=== PATIENT | male | born 1940 | race Caucasian/White ===

== ENCOUNTER 2018-08-19 13:01 | Emergency (ER) | payer OTHER ==
[2018-08-19] MEDS ORDERED: TETANUS & DIPHTHERIA TOX,ADULT 0.5 ML VIAL ONE (13:17)
--- NOTE | 2018-08-19 13:59 | RAD REPORT ---
EXAM DESCRIPTION: CT - Head C Spine Mpr Wo Con - 08/19/2018 1:33 pm CLINICAL HISTORY: Head and neck injury status post fall. Head and neck pain COMPARISON: 2016 TECHNIQUE: Computed axial tomography of the head and cervical spine was obtained. Sagittal and coronal reconstruction was performed. All CT scans are performed using dose optimization technique as appropriate and may include automated exposure control or mA/KV adjustment according to patient size. FINDINGS: An intracranial bleed is not seen. The ventricles are normal in caliber. An extra-axial fl uid collection is not noted. The frontal sinus and left maxillary sinuses are completely opacified. R ight maxillary sinus is almost completely opacified. Moderate opacification ethmoid sinus. A cervical fracture is not visualized. No dislocation is noted. A small central disc herniation C3-4 is present IMPRESSION: No acute intracranial abnormality is seen. A cervical fracture is not visualized. If the patient continues to have symptoms to suggest intracra nial /spinal cord pathology then MRI would be recommended Acute and chronic sinusitis
--- NOTE | 2018-08-19 15:12 | EDPHYS ---
Physician Documentation [facility] Name: Rocky Don Age: 77 yrs Sex: Male : 1940 Arrival Date: 08/19/2018 Time: 13:02 Bed 23 Private MD: ED Physician Ty Ham HPI: 08/19 13:06 This 77 yrs old Male presents to ER via Ambulatory with complaints of Head ps1 Injury With LOC-Adult. 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 Fell and hit head. Has ps1 laceration to left occiput. Negative LOC. Small laceration which is hemostatically controlled [employer]OL SYSTEM[employer] ENG. Pain mild to moderate. [facility] patient. Not on blood thinners. . Historical: - PSHx: 13:21 right ankle surg; tl3 - Immunization history:: Adult Immunizations unknown. - Social history:: Smoking status: unknown. - Ebola Screening: : No symptoms or risks identified at this time. ROS: 13:06 Constitutional: Negative for fever, chills, and weight loss, Eyes: Negative for injury, ps1 pain, redness, and discharge, Cardiovascular: Negative for chest pain, palpitations, and edema, Respiratory: Negative for shortness of breath, cough, wheezing, and pleuritic chest pain, Abdomen/GI: Negative for abdominal pain, nausea, vomiting, diarrhea, and constipation, MS/Extremity: Negative for injury and deformity, Neuro: Negative for headache, weakness, numbness, tingling, and seizure, Psych: Negative for depression, anxiety, suicide ideation, homicidal ideation, and hallucinations. 13:06 Skin: Positive for laceration(s), of the left base of the skull. Exam: 13:06 Constitutional: This is a well developed, well nourished patient who is awake, alert, ps1 and in no acute distress. Eyes: Pupils equal round and reactive to light, extra-ocular motions intact. Lids and lashes normal. Conjunctiva and sclera are non-icteric and not injected. Chest/axilla: Normal chest wall appearance and motion. Nontender with no deformity. No lesions are appreciated. Cardiovascular: Regular rate and rhythm. No gallops, murmurs, or rubs. Normal PMI, no JVD. No pulse deficits. Respiratory: Lungs have equal breath sounds bilaterally, clear to auscultation and percussion. No rales, rhonchi or wheezes noted. No increased work of breathing, no retractions or nasal flaring. Abdomen/GI: Soft, non-tender, with normal bowel sounds. No distension or tympany. No guarding or rebound. No evidence of tenderness throughout. Back: No spinal tenderness. No costovertebral tenderness. Full range of motion. Skin: Warm, dry with normal turgor. Normal color with no rashes, no lesions, and no evidence of cellulitis. MS/ Extremity: Pulses equal, no cyanosis. Neurovascular intact. Full, normal range of motion. Neuro: Awake and alert, GCS 15, oriented to person, place, time, and situation. Cranial nerves II-XII grossly intact. Sensory grossly intact. Psych: Awake, alert, with orientation to person, place and time. Behavior, mood, and affect are within normal limits. 13:06 Head/face: Noted is a laceration(s), that is linear, 2 cm(s), of the left base of the skull. Vital Signs: 13:04 BP 168 / 78; Pulse 77; Resp 16; Temp 98; Pulse Ox 100% on R/A; Pain 1/10; hb 15:01 BP 148 / 90; Pulse 78; Resp 18; Pulse Ox 100% on R/A; tl3 Trauma Score (Adult): 13:04 Eye Response: spontaneous(1); Verbal Response: oriented(1); Motor Response: obeys hb commands(2); Systolic BP: > 89 mm Hg(4); Respiratory Rate: 10 to 29 per min(4); [place] Score: 15; Trauma Score: 12 Laceration: 15:13 Wound Repair of 2cm ( 0.8in ) subcutaneous laceration to scalp and left base of the ps1 skull. Distal neuro/vascular/tendon intact. Wound prep: Simple cleansing with betadine. Skin closed using Dermabond. Patient tolerated well. MDM: 13:44 Patient medically screened. ps1 15:13 Data reviewed: vital signs, nurses notes, radiologic studies, and as a result, I will ps1 discharge patient. 08/19 13:11 Order name: CT Head C Spine; Complete Time: 14:10 ps1 Administered Medications: 13:17 Drug: Tetanus-Diphtheria Toxoid Adult 0.5 ml {Label Rewinder: [employer] ([employer]). Exp: tl3 05/17/2020. Lot #: [id number]. } Route: IM; Site: right deltoid; 15:36 Follow up: Response: No adverse reaction tl3 Disposition: 08/19/18 15:12 Discharged to Home. Impression: Laceration without foreign body of scalp, Fall. - Condition is Stable. - Discharge Instructions: Laceration Care, Adult. - Medication Reconciliation Form, Thank You Letter, Antibiotic Education, Prescription Opioid Use form. - Follow up: Emergency Department; When: As needed; Reason: Worsening of condition. Follow up: Private Physician; When: As needed; Reason: Recheck today's complaints, Continuance of care, Re-evaluation by your physician. - Problem is new. - Symptoms have improved. Signatures: Dispatcher [employer] EDMS Hillary Mayers RN RN Ty Ham MD MD ps1 Lillie Hull RN RN tl3 Corrections: (The following items were deleted from the chart) 15:38 15:12 08/19/2018 15:12 Discharged to Home. Impression: Laceration without foreign body tl3 of scalp; Fall. Condition is Stable. Forms are Medication Reconciliation Form, Thank You Letter, Antibiotic Education, Prescription Opioid Use. Follow up: Emergency Department; When: As needed; Reason: Worsening of condition. Follow up: Private Physician; When: As needed; Reason: Recheck today's complaints, Continuance of care, Re-evaluation by your physician. Problem is new. Symptoms have improved. ps1
--- NOTE | 2018-08-19 15:12 | ER ---
Nurse's Notes [facility] Name: Rocky Don Age: 77 yrs Sex: Male : 1940 Arrival Date: 08/19/2018 Time: 13:02 Bed 23 Private MD: Diagnosis: Laceration without foreign body of scalp;Fall Presentation: 08/19 13:02 Presenting complaint: Laceration to back of head after tripping over extension cord and hb landing on car batter on the floor. Denies LOC. 1cm laceration noted to back of head, not bleeding. Care prior to arrival: None. 13:02 Acuity: TABATHA 3 hb 13:02 Method Of Arrival: Ambulatory hb 13:05 Transition of care: patient was not received from another setting of care. Onset of hb symptoms was August 19, 2018. Risk Assessment: Do you want to hurt yourself or someone else? Patient reports no desire to harm self or others. Initial Sepsis Screen: Does the patient meet any 2 criteria? No. Patient's initial sepsis screen is negative. Does the patient have a suspected source of infection? No. Patient's initial sepsis screen is negative. Trauma Activation: Not Applicable Physician: ED Physician; Name: ; Notified At: ; Arrived At: Physician: General Surgeon; Name: ; Notified At: ; Arrived At: Physician: Radiology; Name: ; Notified At: ; Arrived At: Physician: Respiratory; Name: ; Notified At: ; Arrived At: Physician: Lab; Name: ; Notified At: ; Arrived At: Historical: - PSHx: 13:21 right ankle surg; tl3 - Immunization history:: Adult Immunizations unknown. - Social history:: Smoking status: unknown. - Ebola Screening: : No symptoms or risks identified at this time. Screenin:21 Abuse screen: Denies threats or abuse. Nutritional screening: No deficits noted. tl3 Tuberculosis screening: No symptoms or risk factors identified. Fall Risk Fall in past 12 months (25 points). Primary Survey: 13:03 NO uncontrolled hemorrhage observed. A: The patient is alert. Airway: patent, No hb supplemental oxygen in use on arrival. Breathing/Chest: Respiratory pattern: regular, Respiratory effort: spontaneous, unlabored, Chest inspection:. Circulation: Skin color: pink, Skin temperature: warm, dry. Disability Alert. Exposure/Environment: There is no evidence of uncontrolled external bleeding. Obvious injury(ies) are noted at this time: 1cm laceration to back of head. Assessment: 13:18 General: Appears in no apparent distress. comfortable, slender, well groomed, well tl3 developed, well nourished, Behavior is calm, cooperative, appropriate for age. Pain: Complains of pain in scalp and left base of the skull. Neuro: Level of Consciousness is awake, alert, obeys commands, Oriented to person, place, time, situation, Appropriate for age. Cardiovascular: Patient's skin is warm and dry. Respiratory: Airway is patent. Derm: Wound noted scalp and left base of the skull Wound is pt tripped off over an extension cord at [employer] and hit his head on the corner of a car battery 1/4 in puncture wound to scalp, cleaned with NS. Musculoskeletal: Range of motion: intact in all extremities. 15:01 Reassessment: Patient appears in no apparent distress at this time. No changes from tl3 previously documented assessment. Patient and/or family updated on plan of care and expected duration. Pain level reassessed. Patient is alert, oriented x 3, equal unlabored respirations, skin warm/dry/pink. Dr Ham at bedside for wound clousure. Vital Signs: 13:04 BP 168 / 78; Pulse 77; Resp 16; Temp 98; Pulse Ox 100% on R/A; Pain 1/10; hb 15:01 BP 148 / 90; Pulse 78; Resp 18; Pulse Ox 100% on R/A; tl3 Trauma Score (Adult): 13:04 Eye Response: spontaneous(1); Verbal Response: oriented(1); Motor Response: obeys hb commands(2); Systolic BP: > 89 mm Hg(4); Respiratory Rate: 10 to 29 per min(4); [place] Score: 15; Trauma Score: 12 ED Course: 13:02 Patient arrived in ED. hb 13:03 Ty Ham MD is Attending Physician. ps1 13:03 Triage completed. hb 13:16 Lillie Hull, RN is Primary Nurse. tl3 13:21 Patient has correct armband on for positive identification. Bed in low position. Call tl3 light in reach. Adult w/ patient. 13:21 No provider procedures requiring assistance completed. Patient did not have IV access tl3 during this emergency room visit. 13:34 CT Head C Spine In Process Unspecified. EDMS 13:34 CT completed. Patient tolerated procedure well. Patient moved back from CT. bq 15:37 Arm band placed on left wrist. tl3 Administered Medications: 13:17 Drug: Tetanus-Diphtheria Toxoid Adult 0.5 ml {Rehab Aid: [employer] ([employer]). Exp: tl3 05/17/2020. Lot #: [id number]. } Route: IM; Site: right deltoid; 15:36 Follow up: Response: No adverse reaction tl3 Outcome: 15:01 Discharged to home ambulatory. tl3 15:01 Condition: stable 15:01 Discharge instructions given to patient, family, Instructed on discharge instructions, follow up and referral plans. Demonstrated understanding of instructions, follow-up care. 15:12 Discharge ordered by . ps1 15:38 Patient left the ED. tl3 Signatures: Dispatcher [employer] EDMS Mari Wood bq Hillary Mayers RN RN hb Singer, Phillip, MD MD ps1 Lillie Hull RN RN tl3
[2018-08-19] MEDS ORDERED: DERMABOND SKIN ADHESIVE TOP ONE (15:13)
== END 2018-08-19 15:38 | disposition home or self-care (01) ==
LOC: ER 13:01
PROC: 0HQ0XZZ Repair Scalp Skin, External Approach (ICD-10-PCS; principal; 2018-08-19)
DX: S01.01XA Laceration without foreign body of scalp, initial encounter (principal); W01.198A Fall on same level from slipping, tripping and stumbling with subsequent striking against other object, initial encounter; Z23 Encounter for immunization
CPT/HCPCS: 70450; 72125; 90714; 99284

== ENCOUNTER 2021-09-10 11:41 | Emergency (ER) | payer OTHER ==
--- OUTSIDE RECORDS SUMMARY | 2021-09-10 11:44 | XMS REPORT | Continuity of Care Document ---
:1940 Author Organization [facility] t Address [address] [place] [address] [address] [place] [address] Care Team Providers Name Role Phone Gregory-Mbayo_A_AH Attending Clinician Unavailable Gregory-Mbayo_A_AH Admitting Clinician Unavailable Payers Payer Name Policy Type Policy Number Effective Date Expiration Date S aline [facility] [place] - [id number] 2019 [employer] 00:00:00 (MEDICARE REPLACEMENT/ADVANT AGE - HMO) Problems This patient has no known problems. Allergies, Adverse Reactions, Alerts This patient has no known allergies or adverse reactions. Medications This patient has no known medications. Procedures This patient has no known procedures. Encounters Start End Encounter Admission Attending Care Care Encounter Source Date/Time Date/Time Type Type Clinicians Facility Department ID 2019-10-25 2019-10-25 Outpatient Gregory-Mbayo VFP VFP [id number] [facility] 05:58:00 05:58:00 _A_AH [id number] Family Practic e 2019-10-25 2019-10-25 Outpatient Gregory-Mbayo VFP VFP [id number] [facility] 05:58:00 05:58:00 _A_AH [id number] Family Practic e 2019-10-25 2019-10-25 Outpatient Gregory-Mbayo VFP VFP [id number] [facility] 05:58:00 05:58:00 _A_AH [id number] Family Practic e 2019-10-25 2019-10-25 Outpatient Gregory-Mbayo VFP VFP [id number] [facility] 05:58:00 05:58:00 _A_AH [id number] Family Practic e 2019-10-25 2019-10-25 Outpatient Gregory-Mbayo VFP VFP [id number] [facility] 05:58:00 05:58:00 _A_AH [id number] Family Practic e Results This patient has no known results.
[2021-09-10] MEDS ORDERED: METHYLPREDNISOLONE 125 MG INJ ONE (13:15)
[2021-09-10] MEDS ORDERED: NA CHLORIDE 0.9% 1,000 ML ONE (13:15)
[2021-09-10 13:22] LABS: Absolute Lymphocytes (CBC) 0.6 K/uL (0.7-4.9); Hematocrit 35.6 % (39.6-49.0); Lymphocytes % 11.3 % (15.3-44.8); MPV 8.3 fL (7.6-11.3); RBC Red Blood Cell Count 3.75 M/uL (4.33-5.43)
[2021-09-10 13:33] LABS: BUN Blood Urea Nitrogen 24 mg/dL (7-18); Bicarbonate 30 mmol/L (21-32); Glucose Level 95 mg/dL (74-106); Potassium 4.2 mmol/L (3.5-5.1); Sodium Level 139 mmol/L (136-145)
[2021-09-10 13:33] LABS: Urine Blood Trace-lysed (Negative); Urine Glucose Negative (Negative); Urine Protein Negative (Negative); Urine Specific Gravity 1.025 (1.005-1.030); Urine pH 6.5 (5.0-7.0)
[2021-09-10 13:56] LABS: Urine Bacteria <20 /HPF (NONE SEEN); Urine Mucus 1+ /HPF (NONE SEEN)
--- NOTE | 2021-09-10 13:57 | RAD REPORT ---
EXAM DESCRIPTION: RAD - Chest Single View - 09/10/2021 1:48 pm CLINICAL HISTORY: CONGESTION COMPARISON: No comparisons FINDINGS: Lines: None. Lungs: No evidence of edema or pneumonia. Pleural: No significant pleural effusions or pneumothorax. Cardiac: The heart size is within normal limits. Bones: No acute fractures. Other: IMPRESSION: No acute cardiopulmonary disease.
--- NOTE | 2021-09-10 14:14 | RAD REPORT ---
EXAM DESCRIPTION: CT - Head Brain Wo Cont - 09/10/2021 2:03 pm CLINICAL HISTORY: CONFUSED COMPARISON: No comparisons TECHNIQUE: All CT scans are performed using dose optimization technique as appropriate and may inclu de automated exposure control or mA/KV adjustment according to patient size. FINDINGS: No intracranial hemorrhage, hydrocephalus or extra-axial fluid collection.No areas of brai n edema or evidence of midline shift. Cerebral atrophy. Chronic small vessel ischemic type. Chronic mucoperiosteal thickening within the maxillary and frontal sinuses. The calvarium is intact. IMPRESSION: No acute intracranial abnormality. Chronic small vessel ischemic changes and age advanc ed cerebral atrophy. Chronic sinusitis.
--- NOTE | 2021-09-10 14:38 | ER ---
Nurse's Notes [facility] Name: Rocky Don Age: 80 yrs Sex: Male : 1940 Arrival Date: 09/10/2021 Time: 11:48 Bed 28 Private MD: Guilherme Spencer R Diagnosis: Coronavirus infection, unspecified Presentation: 09/10 12:23 Chief complaint: Patient's son or daughter states: COVID+ as of yesterday, was having jh5 spells of disorientation where he's unable to complete basic tasks like getting dressed, states it's getting better now but after testing positive for COVID he is concerned. Pt is able to answer all questions appropriately at this time, denies pain at this time. Coronavirus screen: Vaccine status: Patient reports receiving the 2nd dose of the covid vaccine. Client denies travel out of the [place] in the last 14 days. Ebola Screen: Patient negative for fever greater than or equal to 101.5 degrees Fahrenheit, and additional compatible Ebola Virus Disease symptoms Patient denies exposure to infectious person. Patient denies travel to an Ebola-affected area in the 21 days before illness onset. Initial Sepsis Screen: Does the patient meet any 2 criteria? No. Patient's initial sepsis screen is negative. Does the patient have a suspected source of infection? No. Patient's initial sepsis screen is negative. Risk Assessment: Do you want to hurt yourself or someone else? Patient reports no desire to harm self or others. Onset of symptoms was September 04, 2021. 12:23 Method Of Arrival: Ambulatory [facility] 12:23 Acuity: TABATHA 3 jh5 Triage Assessment: 12:29 General: Appears in no apparent distress. slender, well groomed, well developed, well jh5 nourished, Behavior is calm, cooperative, appropriate for age. Pain: Denies pain. Neuro: Level of Consciousness is awake, alert, obeys commands, Oriented to person, place, time, situation, Night Guard are equal bilaterally Moves all extremities. Speech is normal. Historical: - Allergies: 12:29 No Known Allergies; jh5 - PMHx: 12:29 Parkinson's disease; 5 - Immunization history:: Adult Immunizations up to date. - Social history:: Smoking status: Patient denies any tobacco usage or history of. Patient/guardian denies using alcohol, street drugs, The patient lives with family. - Family history:: not pertinent. Screenin:44 Abuse screen: Denies threats or abuse. Denies injuries from another. Nutritional ab2 screening: No deficits noted. Tuberculosis screening: No symptoms or risk factors identified. Fall Risk None identified. Assessment: 12:43 General: Appears in no apparent distress. comfortable, Behavior is calm, cooperative, ab2 appropriate for age. Pain: Denies pain. Neuro: No deficits noted. Level of Consciousness is awake, alert, obeys commands, Oriented to person, place, time, situation, Appropriate for age Night Guard are equal bilaterally Moves all extremities. Gait is steady, Speech is normal. Cardiovascular: No deficits noted. Denies chest pain, shortness of breath, Heart tones S1 S2 present Patient's skin is warm and dry. Respiratory: Reports cough that is Airway is patent Breath sounds are diminished bilaterally. GI: No deficits noted. No signs and/or symptoms were reported involving the gastrointestinal system. Abdomen is flat, non-distended, Bowel sounds present X 4 quads. : No deficits noted. No signs and/or symptoms were reported regarding the genitourinary system. EENT: No deficits noted. No signs and/or symptoms were reported regarding the EENT system. Derm: No deficits noted. No signs and/or symptoms reported regarding the dermatologic system. Musculoskeletal: No deficits noted. No signs and/or symptoms reported regarding the musculoskeletal system. Vital Signs: 12:23 BP 131 / 62; Pulse 59; Resp 18; Temp 98.0; Pulse Ox 99% ; Weight 66.68 kg; Height 5 ft. [facility] 8 in. (172.72 cm); Pain 0/10; 12:44 BP 129 / 59; Pulse 53; Resp 16; Pulse Ox 99% on R/A; Pain 0/10; ab2 14:24 BP 141 / 61; Pulse 60; Resp 16; Pulse Ox 98% on R/A; Pain 0/10; ab2 12:23 Body Mass Index 22.35 (66.68 kg, 172.72 cm) [facility] ED Course: 11:48 Patient arrived in ED. am2 11:49 Guilherme Spencer MD is Private Physician. am2 12:29 Triage completed. [facility] 12:29 Arm band placed on right wrist. [facility] 12:44 Kalyan Allen MD is Attending Physician. ma2 12:44 Patient has correct armband on for positive identification. Call light in reach. Side ab2 rails up X2. Adult w/ patient. 12:44 No provider procedures requiring assistance completed. ab2 12:52 Ramsey Vincent, RN is Primary Nurse. bp 13:12 Amylase Sent. ab2 13:12 Basic Metabolic Panel Sent. ab2 13:12 Amylase, Serum Sent. ab2 13:12 Basic Metabolic Panel Sent. ab2 13:12 CBC with Diff Sent. ab2 13:12 CPK Sent. ab2 13:12 Ckmb Sent. ab2 13:12 LFT's Sent. ab2 13:12 Lactate Sent. ab2 13:12 Lipase Sent. ab2 13:12 Procalcitonin Sent. ab2 13:12 Protime (+inr) Sent. ab2 13:12 Ptt, Activated Sent. ab2 13:12 Troponin HS Sent. ab2 13:36 Chest Single View XRAY Sent. ab2 13:48 Chest Single View XRAY In Process Unspecified. EDMS 14:03 CT Head Brain wo Cont In Process Unspecified. EDMS 14:50 IV discontinued, intact, bleeding controlled, No redness/swelling at site. Pressure ab2 dressing applied. Administered Medications: 13:16 Drug: NS 0.9% 1000 ml Route: IV; Rate: 1 bolus; Site: left antecubital; ab2 13:16 Drug: SOLU-Medrol (methylPrednisoLONE) 125 mg Route: IVP; Site: left antecubital; ab2 Outcome: 14:37 Discharge ordered by . ma2 14:49 Discharged to home ambulatory, with family. ab2 14:49 Condition: good 14:49 Discharge instructions given to patient, family, Instructed on discharge instructions, follow up and referral plans. the need for admit, Demonstrated understanding of instructions, follow-up care, medications, Prescriptions given X 3. 14:50 Patient left the ED. ab2 Signatures: Dispatcher [employer] EDMS Faviola Conn am2 Ramsey Vincent, RN RN Kalyan Allen MD MD sd2 Cely Verma RN RN [facility] Manny Price ab2 Corrections: (The following items were deleted from the chart) 12:31 12:23 Chief complaint: Patient's son or daughter states: COVID+ as of yesterday, was jh5 having spells of disorientation where he's unable to complete basic tasks like getting dressed, states he is better now though. jh5 13:13 13:12 UA MICROSCOPIC+U.LAB.BRZ drawn and sent. ab2 EDMS
--- NOTE | 2021-09-10 14:38 | EDPHYS ---
Physician Documentation [facility] Name: Rocky Don Age: 80 yrs Sex: Male : 1940 Arrival Date: 09/10/2021 Time: 11:48 Bed 28 Private MD: Guilherme Spencer R ED Physician Kalyan Allen HPI: 09/10 12:46 This 80 yrs old Male presents to ER via Ambulatory with complaints of covid+, worsening ma2 of symptoms, Altered Mental Status. 12:46 Onset: The symptoms/episode began/occurred gradually, 2 day(s) ago. Associated signs ma2 and symptoms: Pertinent negatives: blurred vision, combativeness, diaphoresis, diarrhea. The patient has not experienced similar symptoms in the past. Historical: - Allergies: 12:29 No Known Allergies; jh5 - PMHx: 12:29 Parkinson's disease; jh5 - Immunization history:: Adult Immunizations up to date. - Social history:: Smoking status: Patient denies any tobacco usage or history of. Patient/guardian denies using alcohol, street drugs, The patient lives with family. - Family history:: not pertinent. ROS: 12:46 Constitutional: Negative for fever, chills, and weight loss. ma2 12:46 All other systems are negative. 12:46 All other systems are negative. Exam: 12:46 Constitutional: This is a well developed, well nourished patient who is awake, alert, ma2 and in no acute distress. Head/Face: Normocephalic, atraumatic. Eyes: Pupils equal round and reactive to light, extra-ocular motions intact. Lids and lashes normal. Conjunctiva and sclera are non-icteric and not injected. Cornea within normal limits. Periorbital areas with no swelling, redness, or edema. ENT: Nares patent. No nasal discharge, no septal abnormalities noted. Tympanic membranes are normal and external auditory canals are clear. Oropharynx with no redness, swelling, or masses, exudates, or evidence of obstruction, uvula midline. Mucous membranes moist. Neck: Trachea midline, no thyromegaly or masses palpated, and no cervical lymphadenopathy. Supple, full range of motion without nuchal rigidity, or vertebral point tenderness. No Meningismus. Chest/axilla: Normal chest wall appearance and motion. Nontender with no deformity. No lesions are appreciated. Cardiovascular: Regular rate and rhythm with a normal S1 and S2. No gallops, murmurs, or rubs. Normal PMI, no JVD. No pulse deficits. Respiratory: Lungs have equal breath sounds bilaterally, clear to auscultation and percussion. No rales, rhonchi or wheezes noted. No increased work of breathing, no retractions or nasal flaring. Abdomen/GI: Soft, non-tender, with normal bowel sounds. No distension or tympany. No guarding or rebound. No evidence of tenderness throughout. Skin: Warm, dry with normal turgor. Normal color with no rashes, no lesions, and no evidence of cellulitis. MS/ Extremity: Pulses equal, no cyanosis. Neurovascular intact. Full, normal range of motion. Neuro: Awake and alert, GCS 15, oriented to person, place, time, and situation. Cranial nerves II-XII grossly intact. Motor strength 5/5 in all extremities. Sensory grossly intact. Cerebellar exam normal. Normal gait. Vital Signs: 12:23 BP 131 / 62; Pulse 59; Resp 18; Temp 98.0; Pulse Ox 99% ; Weight 66.68 kg; Height 5 ft. jh5 8 in. (172.72 cm); Pain 0/10; 12:44 BP 129 / 59; Pulse 53; Resp 16; Pulse Ox 99% on R/A; Pain 0/10; ab2 14:24 BP 141 / 61; Pulse 60; Resp 16; Pulse Ox 98% on R/A; Pain 0/10; ab2 12:23 Body Mass Index 22.35 (66.68 kg, 172.72 cm) [facility] MDM: 12:46 Patient medically screened. ma2 14:35 Differential Diagnosis: electrolyte abnormality, alcohol intoxication, hypoglycemia, ma2 UTI, volume depletion. Data reviewed: vital signs, nurses notes. Counseling: I had a detailed discussion with the patient and/or guardian regarding: the historical points, exam findings, and any diagnostic results supporting the discharge/admit diagnosis, the presence of at least one elevated blood pressure reading (>120/80) during this emergency department visit, lab results, radiology results, the need for outpatient follow up. Response to treatment: the patient's symptoms have markedly improved after treatment. ED course: Patient has COVID, mild dehydration, he is ANO x4 vital signs within normal limits to stay in the ER. Discharged home. 09/10 12:46 Order name: Amylase, Serum 09/10 12:46 Order name: Basic Metabolic Panel [facility] 09/10 12:46 Order name: Blood Culture Adult (2) [facility] 09/10 12:46 Order name: CBC with Diff; Complete Time: 13:40 ok09/10 12:46 Order name: CPK [facility] 09/10 12:46 Order name: Ckmb ok09/10 12:46 Order name: LFT's [facility] 09/10 12:46 Order name: Lactate; Complete Time: 13:40 ok09/10 12:46 Order name: Lipase [facility] 09/10 12:46 Order name: Procalcitonin; Complete Time: 14:35 [facility] 09/10 12:46 Order name: Protime (+inr); Complete Time: 13:40 [facility] 09/10 12:46 Order name: Ptt, Activated; Complete Time: 13:40 ok09/10 12:46 Order name: Troponin HS ok09/10 12:46 Order name: Urine Microscopic Only; Complete Time: 14:35 ok09/10 12:46 Order name: Chest Single View XRAY; Complete Time: 14:35 ok09/10 12:46 Order name: Accucheck; Complete Time: 13:36 09/10 12:46 Order name: Cardiac monitoring; Complete Time: 13:39 ok09/10 12:46 Order name: EKG - Nurse/Tech; Complete Time: 14:41 ok09/10 12:46 Order name: IV Saline Lock - Large Bore; Complete Time: 13:12 09/10 12:46 Order name: Labs collected and sent; Complete Time: 13:12 09/10 12:46 Order name: O2 Per Protocol; Complete Time: 13:12 09/10 12:46 Order name: O2 Sat Monitoring; Complete Time: 13:12 09/10 12:46 Order name: Urine Dipstick-Ancillary (obtain specimen); Complete Time: 13:35 ok09/10 12:46 Order name: CT Head Brain wo Cont; Complete Time: 14:35 ma2 01/13 12:46 Order name: Amylase EDMS 09/10 12:46 Order name: Basic Metabolic Panel EDMS 09/10 13:33 Order name: Urine Dipstick-Ancillary; Complete Time: 13:40 EDMS Administered Medications: 13:16 Drug: NS 0.9% 1000 ml Route: IV; Rate: 1 bolus; Site: left antecubital; ab2 13:16 Drug: SOLU-Medrol (methylPrednisoLONE) 125 mg Route: IVP; Site: left antecubital; ab2 Disposition Summary: 09/10/21 14:37 Discharge Ordered Location: Home ma2 Condition: Stable ma2 Diagnosis - Coronavirus infection, unspecified ma2 Followup: ma2 - With: Private Physician - When: Tomorrow - Reason: If symptoms return, Continuance of care Discharge Instructions: - Discharge Summary Sheet ma2 - COVID-19 ma2 Forms: - Medication Reconciliation Form ma2 - Thank You Letter ma2 - Antibiotic Education ma2 - Prescription Opioid Use ma2 Prescriptions: - Tessalon Perles 100 mg Oral Capsule - take 1 capsule by ORAL route every 8 hours As needed; 15 capsule; Refills: 0, ma2 Product Selection Permitted - Diclofenac Sodium 75 mg Oral Tablet Sustained Release - take 1 tablet by ORAL route 2 times per day; 30 tablet; Refills: 0, Product ma2 Selection Permitted - Zithromax Z-Anthony 250 mg Oral Tablet - take 1 tablet by ORAL route as directed for 5 days Day 1 - take two (2) tablets ma2 one time. Day 2, 3, 4 , 5 take one (1) tablet once daily.; 6 tablet; Refills: 0, Product Selection Permitted Signatures: Dispatcher [employer] EDMS Kalyan Allen MD MD ma2 Cely Verma RN RN jh5 Manny Price ab2 Corrections: (The following items were deleted from the chart) 13: 12:46 UA MICROSCOPIC+U.LAB.BRZ ordered. [facility]SC EDMS
[2021-09-10 15:08] VITALS: TEMP 98
[2021-09-10 15:12] VITALS: BP 141/61; O2SAT 98
[2021-09-10 17:37] LABS: ALT/SGPT 20 U/L (12-78); AST/SGOT 23 U/L (15-37); Albumin 2.9 g/dL (3.4-5.0); Alkaline Phosphatase 84 U/L (45-117); Bilirubin Direct < 0.1 mg/dL (0-0.2); Bilirubin Total 0.3 mg/dL (0.2-1.0); CKMB Creatine Kinase MB 3.5 ng/mL (1.0-3.6); Creatine Phosphokinase 108 U/L (39-308); Lipase 118 U/L (73-393); Protein, Total 7.3 g/dL (6.4-8.2)
[2021-09-10 17:55] LABS: Amylase 75 U/L (25-115)
== END 2021-09-10 14:50 | disposition home or self-care (01) ==
LOC: ER 11:41
DX: U07.1 COVID-19 (principal); R41.82 Altered mental status, unspecified; E86.0 Dehydration
CPT/HCPCS: 87040; 85025; 80048; 36415; 82150; 82550; 85610; 80076; 83605; 85730; 84484; 82553; 83690; 84145; 70450; 71045; 96374; 99284; J7030; J2930; 81003; 81015

== ENCOUNTER 2022-06-03 09:45 | Inpatient (IN) | payer OTHER ==
[2022-06-03 11:27] LABS: Absolute Lymphocytes (CBC) 0.6 K/uL (0.7-4.9); Hematocrit 32.9 % (39.6-49.0); Lymphocytes % 4.6 % (15.3-44.8); MCV 95.8 fL (80-100); MPV 8.9 fL (7.6-11.3); Protime INR 1.17; RBC Red Blood Cell Count 3.43 M/uL (4.33-5.43)
--- OUTSIDE RECORDS SUMMARY | 2022-06-03 11:32 | XMS REPORT | Continuity of Care Document ---
:1940 Author Organization [facility] t Address [address] [place] [address] [address] [place] [address] Care Team Providers Name Role Phone Gregory-Mbayo_A_AH Attending Clinician Unavailable Gregory-Mbayo_A_AH Admitting Clinician Unavailable Payers Payer Name Policy Type Policy Number Effective Date Expiration Date S aline [facility] - [id number] 2019 [employer] 00:00:00 (MEDICARE REPLACEMENT/ADVANT AGE - [...] 2019-10-25 Outpatient Gregory-Mbayo VFP VFP [id number] [facility] 05:58:00 05:58:00 _A_AH [id number] Family Practic e 2019-10-25 2019-10-25 Outpatient Gregory-Mbayo VFP VFP [id number] [facility] 05:58:00 05:58:00 _A_AH [id number] Family Practic e 2019-10-25 2019-10-25 Outpatient Gregory-Mbayo VFP VFP [id number] [facility] 05:58:00 05:58:00 _A_AH [id number] Family Practic e 2019-10-25 2019-10-25 Outpatient Gregory-Mbayo VFP VFP [id number] [facility] 05:58:00 05:58:00 _A_AH [id number] Family Practic e 2019-10-25 2019-10-25 Outpatient Gregory-Mbayo VFP VFP [id number] [facility] 05:58:00 05:58:00 _A_AH [id number] Family Practic e Results This patient has no known results.
--- NOTE | 2022-06-03 11:41 | RAD REPORT ---
EXAM DESCRIPTION: Isabel Single View06/03/2022 11:27 am CLINICAL HISTORY: Cough COMPARISON: August 2021 FINDINGS: Mild chronic interstitial opacities bilaterally Mild lingular opacity Heart is normal size IMPRESSION: Mild lingular opacity may represent atelectasis or infiltrate
[2022-06-03 11:51] LABS: Albumin 3.7 g/dL (3.4-5.0); Bilirubin Direct 0.1 mg/dL (0-0.2); Bilirubin Total 0.4 mg/dL (0.2-1.0); Magnesium 2.6 mg/dL (1.8-2.4); Potassium 5.1 mmol/L (3.5-5.1); Protein, Total 7.8 g/dL (6.4-8.2); Troponin High Sensitivity 33.8 pg/mL (<58.9)
--- NOTE | 2022-06-03 11:53 | RAD REPORT ---
EXAM DESCRIPTION: CT - Head C Spine Cap Wo Con - 06/03/2022 11:27 am CLINICAL HISTORY: fall, trauma COMPARISON: No comparisons TECHNIQUE: Axial [address] head images were obtained. Axial [address] cervical spine images were obtain ed with sagittal and coronal reconstruction images reviewed. Axial 5 mm images of the chest, abdomen and pelvis were obtained. All CT scans are performed using dose optimization technique as appropriate and may include automated exposure control or mA/KV adjustment according to patient size. FINDINGS: No intracranial hemorrhage, mass or edema. No midline shift or abnormal fluid collection. Moderate atrophy and mild chronic ischemic changes are present. Ventricles are in proportion to volum e loss. Arterial calcifications are present. Mastoid air cells are clear. Chronic bilateral maxillary sinusitis changes are present with complete opacification of the right maxillary sinus. No skull fra cture. Cervical bodies are normal in height. The patient has a left convex degenerative scoliotic curvature. No subluxation abnormalities. No fracture or acute bone finding.All disc spaces show loss in height. This is most pronounced at C5-6 and C6-7. Bony foraminal encroachment present at these levels. Sever e degenerative change present around the dens anterior arch C1 level.No prevertebral soft tissue thic kening or paraspinal mass.Central canal detail is inherently limited on CT imaging. CT chest shows no pneumothorax, pulmonary contusion or pleural fluid collection. Interstitial fibroti c changes are present with minimal atelectasis. No mediastinal hematoma and the aorta and pulmonary a rteries are unremarkable. No chest will mass or abnormal axillary finding. No displaced rib fractures are present. No nondisplaced rib fractures confirmed. CT abdomen and pelvis show no injury to solid abdominal viscera. Gallbladder and biliary tree are unr emarkable. No bowel injury or significant finding. No free air, free fluid or abnormal stranding. No hernia, mass or bulky lymphadenopathy. Urinary bladder is distended extending several cm above the u mbilical level. Advanced degenerative and scoliotic changes are present in the spine. Partial compression fractures a re seen in T11 through L5 with varying severity. No pathologic component. Acute fractures are not herbie pected. There is bridging ossification in the thoracic spine. All lumbar disc levels show advanced de generative change. IMPRESSION: No hemorrhage, edema or acute CT Head finding. Cervical spine degenerative change without acute finding. No pneumothorax, displaced rib fracture or other acute traumatic chest finding. No posttraumatic injuries to the abdomen or pelvis. The patient does have a urinary bladder that is v lise distended with the dome extending above the umbilical level. Advanced degenerative changes in the thoracolumbar spine with numerous compression fractures. These a ll appear to be old.
[2022-06-03 12:32] LABS: Urine Blood 1+ (Negative); Urine Glucose Negative (Negative); Urine Protein 1+ (Negative)
[2022-06-03] MEDS ORDERED: AZITHROMYCIN 500 MG INJ IVPB ONE (12:32)
[2022-06-03] MEDS ORDERED: NA CHLORIDE 0.9% 250 ML ONE (12:32)
[2022-06-03 12:59] LABS: Urine RBC <5 /HPF (None Seen)
--- NOTE | 2022-06-03 12:59 | EDPHYS ---
Physician Documentation [facility] Name: Rocky Don Age: 81 yrs Sex: Male : 1940 Arrival Date: 06/03/2022 Time: 09:56 Bed 18 Private MD: ED Physician Linwood Al HPI: 06/03 10:15 This 81 yrs old Male presents to ER via EMS with complaints of fall, AMS. jh7 10:15 The patient presents with decreased mental status, decreased responsiveness. Onset: The jh7 symptoms/episode began/occurred this morning. Possible causes: unknown. Associated signs and symptoms:. Pt found by caregiver this morning on the floor by his bed. States that he was unable to pick him up and called 911. He reports that the patient has a hx of dementia, but that his mental status has been declining over the past week. Also reports a moist cough worsening over the past week.. Historical: - Allergies: 10:15 No Known Allergies; tp1 - Home Meds: 10:15 Oxybutynin Chloride Oral [Active]; amlodipine oral [Active]; finasteride [Active]; tp1 donepezil HCL [Active]; - PMHx: 10:15 Parkinson's disease; Dementia; BPH; Hypertensive disorder; tp1 - Immunization history:: Client reports receiving the 2nd dose of the Covid vaccine. - Social history:: Smoking status: Patient reports use of chewing tobacco. ROS: 10:15 Respiratory: Positive for cough, Negative for wheezing. jh7 10:15 Neuro: Positive for altered mental status, speech changes. 11:42 Eyes: Negative for injury, pain, redness, and discharge, ENT: Negative for injury, jh7 pain, and discharge, Neck: Negative for injury, pain, and swelling, Cardiovascular: Negative for chest pain, palpitations, and edema, Back: Negative for injury and pain, MS/Extremity: Negative for injury and deformity, Skin: Negative for injury, rash, and discoloration. 11:42 All other systems are negative. Exam: 11:42 Constitutional: The patient appears lethargic, uncomfortable, Non-verbal jh7 11:42 Respiratory: the patient does not display signs of respiratory distress, Respirations: Moist, hacking cough noted on exam, Breath sounds: decreased breath sounds, are scattered, Respiratory rate: 20 11:42 Musculoskeletal/extremity: +2 pitting edema on Bilateral lower legs. No pain with passive ROM. 11:42 Skin: injury, abrasion(s), moderate sized abrasion noted, abrasions are not bleeding and appear to be healing. 11:42 Neuro: Sensation: is normal, Pt is non-verbal, opens eyes to voice, is able to track, but does not follow commands.. 11:42 Head/Face: Normocephalic, atraumatic. Eyes: Pupils equal round and reactive to light, jh7 extra-ocular motions intact. Lids and lashes normal. Conjunctiva and sclera are non-icteric and not injected. Cornea within normal limits. Periorbital areas with no swelling, redness, or edema. ENT: Nares patent. No nasal discharge, no septal abnormalities noted. Tympanic membranes are normal and external auditory canals are clear. Oropharynx with no redness, swelling, or masses, exudates, or evidence of obstruction, uvula midline. Mucous membranes moist. Neck: Trachea midline, no thyromegaly or masses palpated, and no cervical lymphadenopathy. Supple, full range of motion without nuchal rigidity, or vertebral point tenderness. No Meningismus. Cardiovascular: Regular rate and rhythm with a normal S1 and S2. No gallops, murmurs, or rubs. Normal PMI, no JVD. No pulse deficits. Abdomen/GI: Soft, non-tender, with normal bowel sounds. No distension or tympany. No guarding or rebound. No evidence of tenderness throughout. Back: No spinal tenderness. No costovertebral tenderness. Full range of motion. Vital Signs: 09:45 BP 131 / 95; Pulse 89; Resp 16; Temp 98.5(A); Pulse Ox 98% on R/A; Weight 61.23 kg; tp1 Height 5 ft. 10 in. (177.80 cm); 11:00 BP 136 / 69; Pulse 90; Resp 16; Pulse Ox 98% on R/A; tp1 11:49 BP 125 / 65; Pulse 83; Resp 17; Pulse Ox 95% on R/A; tp1 12:30 BP 145 / 67; Pulse 80; Resp 22; Pulse Ox 94% on R/A; hb 13:00 BP 118 / 66; Pulse 81; Resp 19; Pulse Ox 96% ; hb 13:58 BP 116 / 62; Pulse 82; Resp 21; Pulse Ox 84% on R/A; hb 14:45 BP 165 / 56; Pulse 86; Resp 19; Pulse Ox 93% on 2 lpm NC; hb 15:30 BP 134 / 74; Pulse 94; Resp 23; Pulse Ox 84% 2 lpm ; hb 16:00 BP 119 / 57; Pulse 100; Resp 24; Pulse Ox 86% on 3 lpm NC; hb 16:30 Pulse Ox 84% on 4 lpm NC; hb 17:09 BP 127 / 74; Pulse 109; Resp 21; Pulse Ox 94% 10 lpm ; hb 18:00 BP 119 / 67; Pulse 119; Resp 25; Temp 98.2; Pulse Ox 97% 10 lpm ; hb 19:00 BP 108 / 68; Pulse 96; Resp 23; Pulse Ox 100% 10 lpm ; hb 09:45 Body Mass Index 19.37 (61.23 kg, 177.80 cm) tp1 13:58 Pt placed on 2LNC hb 15:30 increased to 3LNC hb 16:00 increased to 4LNC hb 17:09 BUBBLER hb 18:00 BUBBLER hb 19:00 BUBBLER hb NIH Stroke Scale Scores: 11:42 NIHSS Score: 17 jh7 Trauma Score (Adult): 11:42 Eye Response: to voice(0); Verbal Response: incomprehensible(0); Motor Response: jh7 localizes pain(1); Systolic BP: > 89 mm Hg(4); Respiratory Rate: 10 to 29 per min(4); [place] Score: 10; Trauma Score: 9 MDM: 09:56 Patient medically screened. [facility] 12:50 Differential Diagnosis: CVA, electrolyte abnormality, hypoglycemia, intracranial bleed, jh7 pneumonia, sepsis, TIA, UTI. Data reviewed: vital signs, nurses notes, lab test result(s), EKG, radiologic studies, CT scan, plain films. Data interpreted: Pulse oximetry: is 94 %. Interpretation: normal. Counseling: I had a detailed discussion with the patient and/or guardian regarding: the historical points, exam findings, and any diagnostic results supporting the discharge/admit diagnosis, the need for further work-up and treatment in the hospital. ED course: Admitted to Dr. Marie under inpatient status. Answered all questions and concerns from the patient's caregiver.. 06/03 09:58 Order name: Basic Metabolic Panel [facility] 06/03 09:58 Order name: CBC with Diff [facility] 06/03 09:58 Order name: LFT's [facility] 06/03 09:58 Order name: Magnesium [facility] 06/03 09:58 Order name: NT PRO-BNP [facility] 06/03 09:58 Order name: PT-INR [facility] 06/03 09:58 Order name: Troponin HS [facility] 06/03 11:27 Order name: Protime (+INR); Complete Time: 11:34 EDMS 06/03 11:28 Order name: CBC with Automated Diff; Complete Time: 11:34 EDMS 06/03 11:34 Order name: Lactate [facility] 06/03 11:52 Order name: Basic Metabolic Panel; Complete Time: 12:05 EDMS 06/03 11:52 Order name: Liver (Hepatic) Function; Complete Time: 12:05 EDMS 06/03 11:52 Order name: Troponin High Sensitivity; Complete Time: 12:05 EDMS 06/03 09:58 Order name: XRAY Chest (1 view) [facility] 06/03 09:58 Order name: EKG; Complete Time: 09:59 [facility] 06/03 09:58 Order name: Cardiac monitoring; Complete Time: 10:56 [facility] 06/03 09:58 Order name: EKG - Nurse/Tech; Complete Time: 10:56 [facility] 06/03 09:58 Order name: CT Chest Abdomen Pelvis W/O Contrast [facility] 06/03 09:58 Order name: CT Head C Spine [facility] 06/03 11:42 Order name: RAD; Complete Time: 12:05 EDMS 06/03 11:52 Order name: NT PRO-BNP; Complete Time: 12:05 EDMS 06/03 11:52 Order name: Magnesium; Complete Time: 12:05 EDMS 06/03 11:53 Order name: CT; Complete Time: 12:05 EDMS 06/03 12:16 Order name: Lactate; Complete Time: 12:33 EDMS 06/03 12:32 Order name: Urine Dipstick-Ancillary; Complete Time: 12:33 EDMS 06/03 12:37 Order name: SARS RAPID [facility] 06/03 12:59 Order name: Urine Microscopic Only; Complete Time: 14:04 EDMS 06/03 13:27 Order name: SARS-COV-2 Antigen Rapid; Complete Time: 14:04 EDMS 06/03 09:58 Order name: IV Saline Lock; Complete Time: 11:11 [facility] 06/03 09:58 Order name: Labs collected and sent; Complete Time: 11:11 [facility] 06/03 09:58 Order name: O2 Per Protocol; Complete Time: 10:49 [facility] 06/03 09:58 Order name: O2 Sat Monitoring; Complete Time: 10:49 [facility] 06/03 09:58 Order name: Urine Dipstick-Ancillary (obtain specimen); Complete Time: 14:01 [facility] 06/03 12:08 Order name: Straight Cath - Urine; Complete Time: 12:26 ap3 06/03 14:28 Order name: Bladder Scanner; Complete Time: 14:36 [facility] 06/03 15:19 Order name: Ambriz; Complete Time: 16:34 [facility] EC:42 Rate is 87 beats/min. Rhythm is regular. QRS [place] is Normal. NC interval is normal at [facility] 130 msec. QRS interval is normal at 86 msec. QT interval is normal at 396 msec. No Q waves. T waves are Normal. No ST changes noted. Clinical impression: Normal ECG. Administered Medications: 12:47 Drug: AZITHromycin 500 mg Route: IVPB; Infused Over: 1 hrs; Site: right forearm; hb Disposition Summary: 06/03/22 12:58 Hospitalization Ordered Hospitalization Status: Inpatient Admission [facility] Provider: Alexei Marie [facility] Location: Telemetry/MedSurg (Inpatient) [facility] Condition: Stable [facility] Problem: new [facility] Symptoms: are unchanged [facility] Bed/Room Type: Standard [facility] Room Assignment: 404(06/03/22 18:35) em1 Diagnosis - Other pneumonia, unspecified organism [facility] - Altered mental status, unspecified [facility] Forms: - Medication Reconciliation Form [facility] - SBAR form [facility] NIH Stroke Scale - NIH Stroke Score Date: 06/03/2022 Time: 11:42 Total Score = 17 1a. Level of Consciousness (LOC) - 1(Not Alert) 1b. Level of Consciousness (LOC) (Month \T\ Age) - 2(Neither) 1c. LOC Commands (Open \T\ Closes Eyes/Energy Broker) - 0(Both) 2. Best Gaze (Lateral Gaze Paresis) - 0(Normal) 3. Visual Field Loss - 0(No visual loss) 4. Facial Palsy - 0(Normal) 5a. Left Arm: Motor (10-second hold) - 2(Drift, some effort against gravity) 5b. Right Arm: Motor (10-second hold) - 2(Drift, some effort against gravity) 6a. Left Leg: Motor (5-second hold - always test supine) - 2(Drift, some effort against gravity) 6b. Right Leg: Motor (5-second hold - always test supine) - 2(Drift, some effort against gravity) 7. Limb Ataxia (finger/nose \T\ heel/rousseau - test with eyes open) - 0(Absent) 8. Sensory Loss (pinprick arms/legs/face) - 0(Normal) 9. Best Language: Aphasia (description/naming/reading) - 3(Mute, global aphasia) 10. Dysarthria (speech clarity - read or repeat words) - 2(Severe) 11. Extinction and Inattention (visual/tactile/auditory/spatial/personal) - 1(Present) Initials: [facility] Addendum: 06/05/2022 02:06 Co-signature as Attending Physician, Linwood Al MD. rn Signatures: Dispatcher [employer] EDMS Linwood Al MD MD rn Martinez, Eric em1 Hillary Mayers RN RN Faviola Ochoa RN RN ap3 Noemi Muniz RN RN tp1 Siria Richards, OFFICE AUTOMATION CLERK OFFICE AUTOMATION CLERK [facility] Corrections: (The following items were deleted from the chart) 06/03 10:50 09:59 UA MICROSCOPIC+U.LAB.BRZ ordered. [facility] 11:43 10:15 Neuro: Positive for altered mental status, speech changes, [place] [id number] 14:02 11:42 Respiratory: the patient does not display signs of respiratory distress, [facility] Respirations: Moist, hacking cough noted on exam, Breath sounds: decreased breath sounds, are scattered, Respiratory rate: 20 [facility] 14:02 13:44 NIHSS Score: 17 [place] [id number] 14:02 13:44 [place] Score=10, Trauma Score=9, [place] [id number] 18:35 12:58 [facility] em
--- NOTE | 2022-06-03 12:59 | ER ---
Nurse's Notes [facility] Name: Rocky Don Age: 81 yrs Sex: Male : 1940 Arrival Date: 06/03/2022 Time: 09:56 Bed 18 Private MD: Diagnosis: Other pneumonia, unspecified organism;Altered mental status, unspecified Presentation: 06/03 09:45 Chief complaint: EMS states: toned out to PT home for a lift assist. EMS states pt fell tp1 from bed and was up against side rail. Unknown if LOC or if PT hit head. EMS reported redness to the right ribs, pressure injury to bilateral knees, PT denies pain. PT has history of dementia, caregiver reported decreased mental status over the past week. PT responds to verbal stimuli, A/O X0. BP 126/69, HR 90, O2 96% RA. 09:45 Ebola Screen: Patient denies exposure to infectious person. Patient denies travel to an 1 Ebola-affected area in the 21 days before illness onset. Initial Sepsis Screen: Does the patient meet any 2 criteria? No. Patient's initial sepsis screen is negative. Does the patient have a suspected source of infection? No. Patient's initial sepsis screen is negative. Risk Assessment: Do you want to hurt yourself or someone else? Patient reports no desire to harm self or others. Onset of symptoms was June 03, 2022. 09:45 Method Of Arrival: EMS: [facility] tp1 09:45 Acuity: TABATHA 3 tp1 10:15 Coronavirus screen: Vaccine status: Patient reports receiving the 2nd dose of the covid tp1 vaccine. Triage Assessment: 10:15 General: Appears in no apparent distress. comfortable, Behavior is calm, cooperative. tp1 General: caregiver states mental status started to decline about a week ago when cough started.. Pain: Denies pain. EENT: No signs and/or symptoms were reported regarding the EENT system. Neuro: Level of Consciousness is awake, alert, Pupils are PERRLA. Cardiovascular: Capillary refill < 3 seconds in bilateral fingers toes Patient's skin is warm and dry. Respiratory: Airway is patent Respiratory effort is even, unlabored. Respiratory: appears to have a wet cough. GI: Abdomen is flat, non-distended. : No signs and/or symptoms were reported regarding the genitourinary system. Derm: Wound noted bilateral knees, top of left big toe Wound is appears to be red with skin break down, no discharge noted. skin around wound is appropriate color. skin appears red to the right ribs, no skin break down noted. Musculoskeletal: Range of motion: limited in all extremities, Swelling present in bilateral lower legs. Historical: - Allergies: 10:15 No Known Allergies; tp1 - Home Meds: 10:15 Oxybutynin Chloride Oral [Active]; amlodipine oral [Active]; finasteride [Active]; tp1 donepezil HCL [Active]; - PMHx: 10:15 Parkinson's disease; Dementia; BPH; Hypertensive disorder; tp1 - Immunization history:: Client reports receiving the 2nd dose of the Covid vaccine. - Social history:: Smoking status: Patient reports use of chewing tobacco. Screenin:47 Abuse screen: Denies threats or abuse. Denies injuries from another. Nutritional tp1 screening: No deficits noted. Tuberculosis screening: No symptoms or risk factors identified. Fall Risk Fall in past 12 months (25 points). Secondary diagnosis (15 points) dementia, IV access (20 points). Ambulatory Aid- None/Bed Rest/Nurse Assist (0 pts). Gait- Impaired (20 pts.). Mental Status- Overestimates/Forgets Limitations (15 pts.). Total Russell Fall Scale indicates High Risk Score (45 or more points). Fall prevention measures have been instituted. Side Rails Up X 2 Placed Close to Nursing Station Frequent Obs/Assessments Occuring. Assessment: 10:15 Reassessment: SEE TRIAGE NOTES. ap3 10:38 Reassessment: escorted to CT via stretcher by Mogujie. tp1 10:47 Reassessment: returned from CT. tp1 11:05 Reassessment: Patient appears in no apparent distress at this time. No changes from tp1 previously documented assessment. Patient and/or family updated on plan of care and expected duration. Pain level reassessed. Patient is alert, oriented x 3, equal unlabored respirations, skin warm/dry/pink. Patient denies pain at this time. 11:48 Reassessment: Patient appears in no apparent distress at this time. No changes from tp1 previously documented assessment. Patient is alert, oriented x 3, equal unlabored respirations, skin warm/dry/pink. resting in bed with eyes closed. Respiratory: Breath sounds are diminished in left upper lobe Breath sounds with wheezes in right upper lobe. 13:00 Reassessment: Patient appears in no apparent distress at this time. No changes from hb previously documented assessment. Patient and/or family updated on plan of care and expected duration. Pain level reassessed. 14:54 Reassessment: No changes from previously documented assessment. Patient and/or family hb updated on plan of care and expected duration. Pain level reassessed. 17:10 Reassessment: Patient appears in no apparent distress at this time. SpO2 low 80s on hb 4LNC, RT notified, SpO2 90s on 10LNC Bubbler. Dr. Marie notified. 18:00 Reassessment: No changes from previously documented assessment. Patient and/or family hb updated on plan of care and expected duration. Pain level reassessed. 19:03 Reassessment: Pt remains altered, on 10LNC - bubbler. Admission ordered, awaiting room hb assignment at this time. Vital Signs: 09:45 BP 131 / 95; Pulse 89; Resp 16; Temp 98.5(A); Pulse Ox 98% on R/A; Weight 61.23 kg; tp1 Height 5 ft. 10 in. (177.80 cm); 11:00 BP 136 / 69; Pulse 90; Resp 16; Pulse Ox 98% on R/A; tp1 11:49 BP 125 / 65; Pulse 83; Resp 17; Pulse Ox 95% on R/A; tp1 12:30 BP 145 / 67; Pulse 80; Resp 22; Pulse Ox 94% on R/A; hb 13:00 BP 118 / 66; Pulse 81; Resp 19; Pulse Ox 96% ; hb 13:58 BP 116 / 62; Pulse 82; Resp 21; Pulse Ox 84% on R/A; hb 14:45 BP 165 / 56; Pulse 86; Resp 19; Pulse Ox 93% on 2 lpm NC; hb 15:30 BP 134 / 74; Pulse 94; Resp 23; Pulse Ox 84% 2 lpm ; hb 16:00 BP 119 / 57; Pulse 100; Resp 24; Pulse Ox 86% on 3 lpm NC; hb 16:30 Pulse Ox 84% on 4 lpm NC; hb 17:09 BP 127 / 74; Pulse 109; Resp 21; Pulse Ox 94% 10 lpm ; hb 18:00 BP 119 / 67; Pulse 119; Resp 25; Temp 98.2; Pulse Ox 97% 10 lpm ; hb 19:00 BP 108 / 68; Pulse 96; Resp 23; Pulse Ox 100% 10 lpm ; hb 09:45 Body Mass Index 19.37 (61.23 kg, 177.80 cm) tp1 13:58 Pt placed on 2LNC hb 15:30 increased to 3LNC hb 16:00 increased to 4LNC hb 17:09 BUBBLER hb 18:00 BUBBLER hb 19:00 BUBBLER hb Trauma Score (Adult): 11:42 Eye Response: to voice(0); Verbal Response: incomprehensible(0); Motor Response: jh7 localizes pain(1); Systolic BP: > 89 mm Hg(4); Respiratory Rate: 10 to 29 per min(4); Stuart Score: 10; Trauma Score: 9 NIH Stroke Scale Scores: 11:42 NIHSS Score: 17 [facility] ED Course: 09:56 Patient arrived in ED. em1 09:56 Siria Richards FNP is PHCP. jh7 09:56 Linwood Al MD is Attending Physician. jh7 10:09 Noemi Muniz, JONNIE is Primary Nurse. tp1 10:15 Triage completed. tp1 10:15 Arm band placed on. tp1 10:15 Patient has correct armband on for positive identification. Placed in gown. Bed in low tp1 position. Call light in reach. Side rails up X2. 10:15 Client placed on continuous cardiac and pulse oximetry monitoring. NIBP monitoring tp1 applied. 11:05 Inserted saline lock: 20 gauge in right forearm, using aseptic technique. Blood tp1 collected. 11:46 Basic Metabolic Panel Sent. tp1 11:46 CBC with Diff Sent. tp1 11:46 LFT's Sent. tp1 11:46 Magnesium Sent. tp1 11:46 PT-INR Sent. tp1 11:46 Troponin HS Sent. tp1 12:57 Alexei Marie is Hospitalizing Provider. 7 13:02 SARS RAPID Sent. hb 19:29 No provider procedures requiring assistance completed. Patient admitted, IV remains in tw5 place. Administered Medications: 12:47 Drug: AZITHromycin 500 mg Route: IVPB; Infused Over: 1 hrs; Site: right forearm; hb Medication: 19:29 VIS not applicable for this client. tw5 Intake: 16:40 PO: 0ml; Total: 0ml. hb Output: 16:40 Urine: 1350ml (Ambriz); Total: 1350ml. hb Outcome: 12:58 Decision to Hospitalize by Provider. [facility] 19:22 Admitted to Med/surg Report called to attempted to call report. JONNIE Jaimes is suppose to call back when available. 19:29 Admitted to Med/surg via stretcher, room 408, with oxygen, on monitor, with chart, tw5 Report called to report called to Theodore CRISTINA 19:29 Condition: stable 20:02 Patient left the ED. tw5 NIH Stroke Scale - NIH Stroke Score Date: 06/03/2022 Time: 11:42 Total Score = 17 1a. Level of Consciousness (LOC) - 1(Not Alert) 1b. Level of Consciousness (LOC) (Month \T\ Age) - 2(Neither) 1c. LOC Commands (Open \T\ Closes Eyes/Electric Needle Specialist) - 0(Both) 2. Best Gaze (Lateral Gaze Paresis) - 0(Normal) 3. Visual Field Loss - 0(No visual loss) 4. Facial Palsy - 0(Normal) 5a. Left Arm: Motor (10-second hold) - 2(Drift, some effort against gravity) 5b. Right Arm: Motor (10-second hold) - 2(Drift, some effort against gravity) 6a. Left Leg: Motor (5-second hold - always test supine) - 2(Drift, some effort against gravity) 6b. Right Leg: Motor (5-second hold - always test supine) - 2(Drift, some effort against gravity) 7. Limb Ataxia (finger/nose \T\ heel/rousseau - test with eyes open) - 0(Absent) 8. Sensory Loss (pinprick arms/legs/face) - 0(Normal) 9. Best Language: Aphasia (description/naming/reading) - 3(Mute, global aphasia) 10. Dysarthria (speech clarity - read or repeat words) - 2(Severe) 11. Extinction and Inattention (visual/tactile/auditory/spatial/personal) - 1(Present) Initials: [facility] Signatures: Jude Caro em1 Hillary Mayers RN RN Faviola Mendez RN RN ap3 Noemi Arreola tw5 Noemi Muniz RN RN tp1 Siria Richards, SPORT PSYCHOLOGIST SPORT PSYCHOLOGIST jh7 Corrections: (The following items were deleted from the chart) 12:12 10:15 Derm: Wound noted bilateral knees, top of left big toe Wound is appears tp1 to be red with skin break down, no discharge noted. skin around wound is appropriate color. tp1 18:59 17:55 Reassessment: Patient appears in no apparent distress at this time. SpO2 hb low 80s on 4LNC, RT notified, SpO2 90s on 10LNC Bubbler. Dr. Marie notified. hb 18:59 17:55 Reassessment: hb hb
[2022-06-03 13:26] LABS: SARS-CoV-2 Antigen Rapid Res Negative (Negative)
--- NOTE | 2022-06-03 14:33 | P.HP ---
Certification for Inpatient Patient admitted to: Inpatient With expected LOS: >2 Midnights Practitioner: I am a practitioner with admitting privileges, knowledge of patient current condition, hospital course, and medical plan of care. Services: Services provided to patient in accordance with Admission requirements found in Title 42 Section 412.3 of the Code of Federal Regulations Patient History Date of Service: 06/03/22 Reason for admission: Fall and altered mental status History of Present Illness: 81-year-old man with a history of advanced dementia, hypertension, BPH and Parkinson's disease was brought to the emergency department by EMS because he fell. [employer] Electrical [employer]er also reported increasing confusion over the past 1 week. Patient noted to have abrasion to both knees. No family member is available to provide history. Patient has advanced dementia, confused and cannot provide any history. Blood work done in the emergency department demonstrated moderate leukocytosis and elevated creatinine, CT trauma showed no evidence of fracture or visceral injury, no pneumonia. It demonstrated distended urinary bladder. Patient was straight cath in the ED, UA done is negative for UTI. Nursing staff report he also voided. Patient is admitted for further management. - Past Medical/Surgical History -: BPH -: Hypertension -: Parkinson's disease -: Dementia - Social History Smoking Status: Unknown if ever smoked Alcohol use: No Place of Residence: Home Review of Systems is unable to be obtained Physical Examination - Physical Exam General: Cachectic, Confused HEENT: PERRLA, Mucous membr. moist/pink Neck: Supple, JVD not distended Respiratory: Clear to auscultation bilaterally, Normal air movement Cardiovascular: No edema, Regular rate/rhythm, Normal S1 S2 Capillary refill: <2 Seconds Gastrointestinal: Normal bowel sounds, Soft and benign, Non-distended, No tenderness Musculoskeletal: No swelling Integumentary: Other (Abrasion-bilateral knee caps) Neurological: Other (He moves all extremities spontaneously.), Dementia Lymphatics: No axilla or inguinal lymphadenopathy - Studies Laboratory Data (last 24 hrs) 06/03/22 11:04: PT 12.9 H, INR 1.17 06/03/22 11:04: WBC 13.10 H, Hgb 10.9 L, Hct 32.9 L, Plt Count 157 06/03/22 11:04: Sodium 143, Potassium 5.1, BUN 47 H, Creatinine 3.10 H, Glucose 139 H, Magnesium 2.6 H, Total Bilirubin 0.4, AST 74 H, ALT 35, Alkaline Phosphatase 77 Assessment and Plan - Problems (Diagnosis) (1) Fall Current Visit: Yes Status: Acute (2) Metabolic encephalopathy Current Visit: Yes Status: Acute (3) Urinary retention Current Visit: Yes Status: Acute (4) BPH (benign prostatic hyperplasia) Current Visit: Yes Status: Acute (5) Dementia Current Visit: Yes Status: Acute (6) Acute renal failure Current Visit: Yes Status: Acute - Plan Admit to the medical floor. Patient has leukocytosis but no focus of infection. Will treat empirically with IV Rocephin as we wait for cultures to result. Insert Ambriz catheter for urinary retention and monitor urine output. Acute renal failure-prerenal versus obstructive uropathy. Check urine sodium and creatinine for FeNA. Nephrology consult. Haldol as needed for agitation. Keep n.p.o. today given altered mental status. Hold oxybutynin given urinary retention and delirium. - Advance Directives Does patient have a Living Will: No Does patient have a Durable POA for Healthcare: No
[2022-06-03] MEDS ORDERED: ACETAMINOPHEN 650MG/RECT SUPP PR PRN (23:15)
[2022-06-03] MEDS ORDERED: ONDANSETRON 4 MG/2 ML VIAL IV PRN (23:15)
[2022-06-03 23:21] VITALS: BMI 19.3
[2022-06-04] MEDS: D5 0.45 NS 1,000 ML IV SCH ×2 (01:37→12:14)
[2022-06-04] MEDS: HEPARIN 5000 UNIT/ML 1 ML VIAL SQ SCH ×3 (01:37→17:00)
[2022-06-04] MEDS ORDERED: ALBUTEROL 2.5 MG/3 ML NEB SOL NEB PRN (02:58)
[2022-06-04 03:48] LABS: Arterial Blood Carboxyhemoglob 1.2 % (0-1.5); Blood Gas Oxyhemoglobin 90.6 % (94-97); Blood O2 Saturation 92.9 % (92-98.5)
[2022-06-04 06:15] LABS: Absolute Lymphocytes (CBC) 0.6 K/uL (0.7-4.9); Hematocrit 30.4 % (39.6-49.0); MCV 94.6 fL (80-100); MPV 8.9 fL (7.6-11.3); RBC Red Blood Cell Count 3.22 M/uL (4.33-5.43)
--- NOTE | 2022-06-04 06:21 | RAD REPORT ---
EXAM DESCRIPTION: RAD - Chest Single View - 06/04/2022 3:16 am CLINICAL HISTORY: increasing O2 requirement, shortness of breath COMPARISON: Portable June 03 TECHNIQUE: AP portable chest image was obtained 06/04/2022 3:16 am . FINDINGS: No new mass or consolidation. Slightly better aeration of the lateral left base. Overall, no substantial change to the lung parenchymal pattern. Heart and vasculature are normal. No measurable pleural effusion and no pneumothorax. No acute bony abnormality seen. No acute aortic findings suspected. IMPRESSION: Slightly improved aeration of the lateral left base. Overall exam is stable from June 03.
[2022-06-04 06:28] LABS: Magnesium 2.3 mg/dL (1.8-2.4); Phosphorus 3.6 mg/dL (2.5-4.9); Potassium 4.1 mmol/L (3.5-5.1)
[2022-06-04 07:20] LABS: Blood Morphology Comment NOT SEEN (NOT SEEN); Dohle Bodies PRESENT; Platelet Estimate ADEQ
[2022-06-04] MEDS: CEFTRIAXONE 1,000 MG in NA CHLORIDE 0.9% 50 ML IVPB SCH (08:29)
--- NOTE | 2022-06-04 13:36 | P.CNS ---
Date of Consult: 06/04/22 Chief Complaint: Fall and altered mental status History of Present Illness: 81M w/ PMHx of BPH, advanced dementia, Htn, & parkinson's dse, who was BIBA d/t mechanical fall + AMS. He was noted to have leukocytosis & NATHALIE on adm. CT showed distended urinary bladder. Murry inserted. His baseline SCr is 1.6 in August 2021. His serum creatinine was 3.1 on admission, improved to 2.4 today. His BNP is elevated at 522. Allergies No Known Allergies Allergy (Unverified 06/03/22 18:07) Home Medications: Amlodipine Besylate 10 mg PO DAILY 06/04/22 Donepezil HCl 10 mg PO BEDTIME 06/04/22 Finasteride 5 mg PO DAILY 06/04/22 Oxybutynin Chloride [Ditropan Xl] 5 mg PO DAILY 06/04/22 - Past Medical/Surgical History -: BPH -: Hypertension -: Parkinson's disease -: Dementia - Social History Smoking Status: Unknown if ever smoked Alcohol use: No Place of Residence: Home Review of Systems is unable to be obtained (d/t AMS) Physical Examination Temp Pulse Resp BP Pulse Ox 99.3 F 82 20 127/58 L 96 06/04/22 12:00 06/04/22 12:00 06/04/22 12:00 06/04/22 12:00 06/04/22 12:00 General: Other (appears chronically ill) HEENT: Atraumatic, Normocephalic Neck: Supple, JVD not distended Respiratory: Diminished Cardiovascular: No rubs, No murmurs Gastrointestinal: Soft and benign, No guarding Musculoskeletal: No clubbing Integumentary: No warmth Neurological: Dementia Lymphatics: No axilla or inguinal lymphadenopathy Urinary: Murry catheter External genitalia: Deferred Rectal: Deferred Laboratory Data (last 24 hrs) 06/04/22 05:18: Sodium 144, Potassium 4.1 D, BUN 44 H, Creatinine 2.39 H, Gluco se 170 H, Phosphorus 3.6, Magnesium 2.3 06/04/22 05:18: WBC 9.70, Hgb 10.6 L, Hct 30.4 L, Plt Count 152 Conclusions/Impression: # NATHALIE 2/2 prerenal state + obstructive uropathy +/- ATN from prolonged prerenal Hx of BPH; CT A/P showed distended urinary bladder. Baseline SCr is 1.6 in August 2021 SCr was 3.1 on admission, improved to 2.4 today urinalysis showed proteinuria but no hematuria or pyuria. BNP is elevated at 522 +Mild rhabdo Cont IVF Cont murry Start Flomax qhs Monitor I/O, renal panel # Leukocytosis Resolved On empiric abx F/u cultures # Advanced dementia Hx of parkinson's dse Per primary team # Anemia Monitor H&H # Vitamin D deficiency Start D3 2000 units by mouth daily # Mechanical falls PT/OT
--- NOTE | 2022-06-04 15:05 | P.PN ---
Subjective Date of Service: 06/04/22 Chief Complaint: Fall and altered mental status Patient remains unresponsive. Serum creatinine trended down. No agitation reported. He was needing high flow oxygen yesterday. Currently weaned down to room air. Physical Examination - Vital Signs Temperature: 99.3 F Blood Pressure: 127/58 Pulse: 82 Respirations: 20 Pulse Ox (%): 96 - Studies Laboratory Data (last 24 hrs) 06/04/22 05:18: Sodium 144, Potassium 4.1 D, BUN 44 H, Creatinine 2.39 H, Glucose 170 H, Phosphorus 3.6, Magnesium 2.3 06/04/22 05:18: WBC 9.70, Hgb 10.6 L, Hct 30.4 L, Plt Count 152 Microbiology Data (last 24 hrs): 06/04/22 00:45 Wound - Right Knee Gram Stain - Final 06/03/22 Unknown Blood - Blood Anaerobic Blood Culture - Final 06/03/22 23:50 Blood - Blood Anaerobic Blood Culture - Final Assessment And Plan - Current Problems (Diagnosis) (1) Fall Current Visit: Yes Status: Acute (2) Metabolic encephalopathy Current Visit: Yes Status: Acute (3) Urinary retention Current Visit: Yes Status: Acute (4) BPH (benign prostatic hyperplasia) Current Visit: Yes Status: Acute (5) Dementia Current Visit: Yes Status: Acute (6) Acute renal failure Current Visit: Yes Status: Acute - Plan Physical Exam General: Cachectic, unresponsive Neck: Supple, JVD not distended Respiratory: Clear to auscultation bilaterally, Normal air movement Cardiovascular: No edema, Regular rate/rhythm, Normal S1 S2 Gastrointestinal: Normal bowel sounds, Soft and benign, Non-distended, No tenderness Musculoskeletal: No swelling Integumentary: Abrasion-bilateral knee caps Neurological: He moves all extremities spontaneously, withdraws all extremities to pain. Dementia Plan: UA is negative for UTI Blood cultures pending Leukocytosis resolved. Patient weaned off oxygen. Continue IV Rocephin as we wait for cultures to result. Maintain Ambriz catheter for urinary retention. Low urine output. Acute renal failure-prerenal versus obstructive uropathy. Serum creatinine trended down. Continue to monitor renal function Nephrology consulted Haldol as needed for agitation. Keep n.p.o. today given altered mental status. Holding oxybutynin given urinary retention and delirium. Patient's son Rajesh updated. According to uJlio patient was able to walk but had unsteady gait about 2 weeks ago. Over the past 1 month his performance status has been declining, he has been needing assistance with putting on clothes and caught him from falling multiple times. Declining performance status secondary to progressive dementia highly likely. Monitor for improvement in mental status otherwise would recommend hospice.
[2022-06-05] MEDS: D5 0.45 NS 1,000 ML IV SCH ×3 (00:29→08:32)
[2022-06-05] MEDS: HEPARIN 5000 UNIT/ML 1 ML VIAL SQ SCH ×4 (00:30→16:28)
[2022-06-05 04:32] LABS: Hematocrit 32.4 % (39.6-49.0); MCV 96.2 fL (80-100); MPV 8.9 fL (7.6-11.3); RBC Red Blood Cell Count 3.36 M/uL (4.33-5.43)
[2022-06-05 06:29] LABS: UR PROTEIN 100.7 mg/dL (<11.9); Urine Protein/Creatinine Ratio 0.93 ratio (<0.15)
[2022-06-05 06:41] LABS: Specific Gravity 1.018 (1.005-1.030); Urine Bacteria <20 /HPF (<20); Urine Bilirubin NEGATIVE (Negative); Urine Blood 3+ (OVER) (Negative); Urine Clarity Clear (Clear); Urine Color Light-Yellow (Yellow); Urine Glucose NEGATIVE (Negative); Urine Mucus Slight /HPF (None Seen); Urine Protein 1+ (Negative); Urine RBC >50 /HPF (None Seen); Urine Urobilinogen Normal (Normal); Urine pH 5.5 (5.0-7.0)
[2022-06-05] MEDS: CEFTRIAXONE 1,000 MG in NA CHLORIDE 0.9% 50 ML IVPB SCH (08:38)
[2022-06-05] MEDS: VITAMIN D 1000 UNIT TAB PO SCH (09:00)
[2022-06-05] MEDS ORDERED: ALBUMIN HUMAN 25% 100 ML IV SCH (10:00)
--- NOTE | 2022-06-05 11:04 | EKG ---
Test Date: 2022-06-03 Test Time: 10:48:36 Rn Managed Care: ALP MEASUREMENT RESULTS: Intervals: Rate: 87 AR: 130 QRSD: 86 QT: 396 QTc: 476 [place]: P: 44 AR: 130 QRS: 29 T: 62 INTERPRETIVE STATEMENTS: Normal sinus rhythm Normal ECG No previous ECG available for comparison Electronically Signed On 06-05-22 11:02:52 CDT by Constantin Landaverde
--- NOTE | 2022-06-05 11:25 | RAD REPORT ---
EXAM DESCRIPTION: RAD - Chest Single View - 06/05/2022 9:13 am CLINICAL HISTORY: Hypoxia Chest pain. COMPARISON: Chest Single View dated 06/04/2022; Chest Single View dated 06/03/2022; Chest Single View dated 09/10/2021 FINDINGS: Portable technique limits examination quality. Bibasilar reticular opacities are present, mildly progressive since yesterday's study. The heart is n ormal in size. No displaced fractures. IMPRESSION: Mild worsening in bibasilar reticular opacities since yesterday's study.
--- NOTE | 2022-06-05 12:54 | P.PN ---
Subjective Date of Service: 06/05/22 Chief Complaint: Fall and altered mental status 81M w/ PMHx of BPH, advanced dementia, Htn, & parkinson's dse, who was BIBA d/t mechanical fall + AMS. He was noted to have leukocytosis & NATHALIE on adm. CT showed distended urinary bladder. Murry inserted. His baseline SCr is 1.6 in August 2021. His serum creatinine was 3.1 on admission Today no overnight events Cr improving CPK 2000 will start on D5W Physical exam General: Awake, NAD , on high flow NC HEENT: Atraumatic, Normocephalic Neck: Supple, no elevated JVD Respiratory: basal rales Cardiovascular: No rubs, No murmurs Gastrointestinal: Soft and benign, Non-distended, folety catheter Musculoskeletal: No clubbing Integumentary: No warmth Neurological: Normal tone, Sensation intact Lymphatics: No axilla or inguinal lymphadenopathy A/P improving # NATHALIE 2/2 prerenal state + obstructive uropathy +/- ATN from prolonged prerenal Hx of BPH; CT A/P showed distended urinary bladder. 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
--- NOTE | 2022-06-05 14:51 | P.PN ---
Subjective Date of Service: 06/05/22 Chief Complaint: Fall and altered mental status Patient is awake and interactive today. Serum creatinine continue to trend down. No agitation reported. He is currently tolerating room air. Physical Examination - Vital Signs Temperature: 97.6 F Blood Pressure: 140/66 Pulse: 65 Respirations: 14 Pulse Ox (%): 92 - Studies Microbiology Data (last 24 hrs): 06/03/22 Unknown Blood - Blood Anaerobic Blood Culture - Final 06/03/22 23:50 Blood - Blood Anaerobic Blood Culture - Final Assessment And Plan - Current Problems (Diagnosis) (1) Fall Current Visit: Yes Status: Acute (2) Metabolic encephalopathy Current Visit: Yes Status: Acute (3) Urinary retention Current Visit: Yes Status: Acute (4) BPH (benign prostatic hyperplasia) Current Visit: Yes Status: Acute (5) Dementia Current Visit: Yes Status: Acute (6) Acute renal failure Current Visit: Yes Status: Acute - Plan Physical Exam General: Cachectic, unresponsive Neck: Supple, JVD not distended Respiratory: Clear to auscultation bilaterally, Normal air movement Cardiovascular: No edema, Regular rate/rhythm, Normal S1 S2 Gastrointestinal: Normal bowel sounds, Soft and benign, Non-distended, No tenderness Musculoskeletal: No swelling Integumentary: Abrasion-bilateral knee caps Neurological: He moves all extremities spontaneously, withdraws all extremities to pain. Dementia Plan: UA is negative for UTI Blood cultures pending Leukocytosis resolved. Patient tolerating room air. IV antibiotic. Maintain Ambriz catheter for urinary retention. Low urine output. Voiding trial and check postvoid residual tomorrow. Start heart healthy diet. Acute renal failure-prerenal versus obstructive uropathy. Serum creatinine continue to trend down Continue to monitor renal function IV fluid per nephrology. Patient is more awake and alert. Holding oxybutynin given urinary retention and delirium. Patient's son Rajesh jaquez. According to Julio patient was able to walk but had unsteady gait about 2 weeks ago. Over the past 1 month his performance status has been declining, he has been needing assistance with putting on clothes and caught him from falling multiple times. Mental status is improved. PT to evaluate.
[2022-06-05] MEDS: D5W 1,000 ML IV SCH (15:17)
[2022-06-05] MEDS: Levofloxacin 750mg IV 750 MG/150 ML BAG IV SCH (15:18)
[2022-06-05] MEDS: TAMSULOSIN 0.4 MG SR CAP PO SCH (20:46)
[2022-06-06] MEDS: HEPARIN 5000 UNIT/ML 1 ML VIAL SQ SCH ×3 (00:43→16:22)
[2022-06-06 06:03] LABS: Hematocrit 31.2 % (39.6-49.0); Lymphocytes % 9.6 % (15.3-44.8); MCV 94.5 fL (80-100); MPV 9.5 fL (7.6-11.3)
[2022-06-06 06:09] LABS: Potassium 3.5 mmol/L (3.5-5.1)
[2022-06-06] MEDS: KCL 20 MEQ/100 mL IVPB 20 MEQ/100 ML BAG IV SCH ×2 (07:09→08:47)
[2022-06-06] MEDS: VITAMIN D 1000 UNIT TAB PO SCH (08:47)
[2022-06-06] MEDS: D5W 1,000 ML IV SCH (09:00)
--- NOTE | 2022-06-06 11:12 | P.PN ---
Subjective Date of Service: 06/06/22 Chief Complaint: Fall and altered mental status 81M w/ PMHx of BPH, advanced dementia, Htn, & parkinson's dse, who was BIBA d/t mechanical fall + AMS. He was noted to have leukocytosis & NATHALIE on adm. CT showed distended urinary bladder. Murry inserted. His baseline SCr is 1.6 in August 2021. His serum creatinine was 3.1 on admission Today no overnight events Cr improving CPK down to 700 will stop IVF Physical exam General: Awake, NAD , on high flow NC HEENT: Atraumatic, Normocephalic Neck: Supple, no elevated JVD Respiratory: basal rales Cardiovascular: No rubs, No murmurs Gastrointestinal: Soft and benign, Non-distended, folety catheter Musculoskeletal: No clubbing Integumentary: No warmth Neurological: Normal tone, Sensation intact Lymphatics: No axilla or inguinal lymphadenopathy A/P improving # NATHALIE 2/2 prerenal state + obstructive uropathy +/- ATN from prolonged prerenal Hx of BPH; CT A/P showed distended urinary bladder. 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
--- NOTE | 2022-06-06 15:12 | P.PN ---
Subjective Date of Service: 06/06/22 Chief Complaint: Fall and altered mental status Patient is more confused today. It appears his mental status waxes and wanes. Serum creatinine continue to improve No agitation reported. He is now maintained on 2 L oxygen by nasal cannula. Physical Examination - Vital Signs Temperature: 98.1 F Blood Pressure: 140/75 Pulse: 74 Respirations: 20 Pulse Ox (%): 97 Assessment And Plan - Current Problems (Diagnosis) (1) Fall Current Visit: Yes Status: Acute (2) Metabolic encephalopathy Current Visit: Yes Status: Acute (3) Urinary retention Current Visit: Yes Status: Acute (4) BPH (benign prostatic hyperplasia) Current Visit: Yes Status: Acute (5) Dementia Current Visit: Yes Status: Acute (6) Acute renal failure Current Visit: Yes Status: Acute - Plan Physical Exam General: Cachectic, confused. Neck: JVD not distended Respiratory: Clear to auscultation bilaterally, Normal air movement Cardiovascular: No edema, Regular rate/rhythm, Normal S1 S2 Gastrointestinal: Normal bowel sounds, Soft and benign, Non-distended, No tenderness Musculoskeletal: No swelling Integumentary: Abrasion-bilateral knee caps Neurological: He moves all extremities spontaneously. Dementia Plan: UA is negative for UTI Blood cultures pending Patient now maintained on 2 L oxygen by nasal cannula. Repeat chest x-ray shows mild worsening bibasilar opacities. Continue IV antibiotic. Maintain Ambriz catheter for urinary retention. Low urine output. Not ready for voiding trial given increased confusion. Dysphagia diet. Feed with assistance Acute renal failure-prerenal versus obstructive uropathy. Serum creatinine continue to trend down Continue to monitor renal function Nephrology is following. Off IV fluid Oxybutynin given urinary retention and delirium. Son request for skilled rehab placement. PT. Consult to social service for disposition.
[2022-06-06] MEDS: TAMSULOSIN 0.4 MG SR CAP PO SCH ×2 (21:00→21:38)
[2022-06-06] MEDS: PIPER TAZO 3.375 GM in NA CHLORIDE 0.9% 100 ML IV SCH (21:39)
[2022-06-06] MEDS ORDERED: NA CHLORIDE 0.9% 100 ML ONE (21:42)
[2022-06-07] MEDS: HEPARIN 5000 UNIT/ML 1 ML VIAL SQ SCH ×3 (02:00→16:45)
[2022-06-07 04:46] LABS: Absolute Lymphocytes (CBC) 0.9 K/uL (0.7-4.9); Hematocrit 30.3 % (39.6-49.0); Lymphocytes % 8.3 % (15.3-44.8); MCV 93.7 fL (80-100); MPV 8.7 fL (7.6-11.3); RBC Red Blood Cell Count 3.23 M/uL (4.33-5.43)
[2022-06-07 05:06] LABS: Potassium 3.4 mmol/L (3.5-5.1)
[2022-06-07] MEDS ORDERED: KCL 20 MEQ/100 mL IVPB 20 MEQ/100 ML BAG IV SCH (07:00)
[2022-06-07] MEDS ORDERED: NA CHLORIDE 0.9% 100 ML IV ONE (07:29)
[2022-06-07] MEDS: VITAMIN D 1000 UNIT TAB PO SCH (09:00)
[2022-06-07] MEDS: PIPER TAZO 3.375 GM in NA CHLORIDE 0.9% 100 ML IV SCH ×2 (09:46→20:11)
[2022-06-07] MEDS: Levofloxacin 750mg IV 750 MG/150 ML BAG IV SCH (14:54)
--- NOTE | 2022-06-07 15:54 | P.PN ---
Subjective Date of Service: 06/07/22 Chief Complaint: Fall and altered mental status Patient with waxing and waning mental status. No major changes from yesterday. Serum creatinine continue to improve. Repeat chest x-ray shows mild worsening of infiltrates. No agitation reported. He is needing 3 L oxygen by nasal cannula. Physical Examination - Vital Signs Temperature: 97.9 F Blood Pressure: 166/74 Pulse: 58 Respirations: 16 Pulse Ox (%): 97 - Studies Microbiology Data (last 24 hrs): 06/04/22 00:45 Wound - Right Knee Gram Stain - Final Assessment And Plan - Current Problems (Diagnosis) (1) Fall Current Visit: Yes Status: Acute (2) Metabolic encephalopathy Current Visit: Yes Status: Acute (3) Urinary retention Current Visit: Yes Status: Acute (4) BPH (benign prostatic hyperplasia) Current Visit: Yes Status: Acute (5) Dementia Current Visit: Yes Status: Acute (6) Acute renal failure Current Visit: Yes Status: Acute - Plan Physical Exam General: Cachectic, confused. Respiratory: Mild bibasilar crackles. Cardiovascular: No edema, Regular rate/rhythm, Normal S1 S2 Gastrointestinal: Normal bowel sounds, Soft and benign, Non-distended, No tenderness Musculoskeletal: No swelling Integumentary: Abrasion-bilateral knee caps Neurological: He moves all extremities spontaneously. Dementia Plan: UA is negative for UTI Blood cultures: No growth to date Patient now maintained on 3 L oxygen by nasal cannula. Repeat chest x-ray shows mild worsening bibasilar opacities. Continue IV antibiotic. Maintain Ambriz catheter for urinary retention. Patient is not ready for voiding trial given increased confusion. Dysphagia diet. Feed with assistance Acute renal failure likely prerenal. Serum creatinine continue to trend down. Continue to monitor renal function Nephrology is following. Off IV fluid Discontinued oxybutynin given urinary retention and delirium. Son request for skilled rehab placement and transition to long-term care. PT. Consult to social service for disposition.
[2022-06-07] MEDS: TAMSULOSIN 0.4 MG SR CAP PO SCH (20:11)
--- NOTE | 2022-06-07 21:44 | P.PN ---
Date of Service: 06/08/22 Subjective: no acute events overnight patient with dementia ROS: 10 point ROS unable to be accurately obtained secondary to dementia denies pain Physical Exam: Gen: NAD, AOx2 HEENT: normal conjunctiva, sclera anicteric CV: regular rate & rhythm, no edema Pulm: non-labored respirations on 3L NC Abd: soft, non-tender, non-distended Skin: b/l knees, pressure ulcers / abrasions, dressings in place Neuro: +dementia, fatigued, moves extremities vitals reviewed Problem List fall, weakness acute metabolic encephalopathy urinary retention BPH NATHALIE h/o dementia unclear etiology of encephalopathy UA negative blood cultures without growth possibly due to nathalie / urinary retention NATHALIE 2/2 prerenal / urinary retention unclear etiology of urinary retention; home med list: finasteride, suspect BPH, continue flomax continue murry will need f/u with urology renal function improving nephrology following acute hypoxemic respiratory failure last CXR on 06/05 - mild worsening bibasilar opacities repeat CXR ordered on 3L NC initial CT negative on empiric zosyn and levaquin; knee superficial wound culture: pseudomonas. sensitivities reviewed, dc zosyn POA requested SNF with likely transition to long-term care PT consulted SW/CM consulted VTE: heparin sq Code: full Dispo: SNF, 1-2 days Time Spent Managing Pts Care (In Minutes): 35
[2022-06-08] MEDS: HEPARIN 5000 UNIT/ML 1 ML VIAL SQ SCH ×3 (01:17→16:15)
--- NOTE | 2022-06-08 03:55 | PN ---
Date of Progress Note: 06/07/2022 Chief Complaint: Acute kidney injury. Subjective: Patient was found to have severe leukocytosis and elevated BUN and creatinine. CT scan showed distended urinary bladder. Ambriz catheter was inserted. The patient has underlying chronic k idney disease stage 3 and baseline creatinine level was 1.6 in August 2021. On admission, creatinin e level was up to 3.1. Review of Systems: Today, patient denies complaints, although he cannot provide review of the systems. Physical Examination: Lungs: Clear to auscultation bilaterally. Heart: S1, S2. Abdomen: Soft. Extremities: No edema. Impression: 1.Acute kidney injury secondary to prerenal state, obstructive uropathy, bladder outlet obstruction, acute tubular necrosis from prolonged prerenal state. The patient has history of BPH and immediatel y started showing distended urinary bladder and Ambriz catheter was placed for bladder outlet obstruct ion. Serum creatinine level has been gradually improving. Continue Ambriz catheter. 2.Hypertension. Continue blood pressure medication. Avoid nephrotoxic medication. 3.Mild hypernatremia related to IV fluids. Patient received normal saline, which may be culprit for hypernatremia. Continue D5W and monitor sodium level. 4.Urinary retention. Continue Flomax for BPH. Patient will follow up with Urologist. 5.Advanced dementia. History of Parkinson disease per primary team. 6.Anemia. Monitor hemoglobin level. 7.Rhabdomyolysis. Patient has not been taking statin medication and has elevated CK level. Monitor CK level. Likely elevated CK level may be due to mechanical fall. KAVIN/MODL Voice ID: [id number] Report ID: [id number]
[2022-06-08 06:12] LABS: Absolute Lymphocytes (CBC) 1.1 K/uL (0.7-4.9); Hematocrit 32.7 % (39.6-49.0); Lymphocytes % 10.1 % (15.3-44.8); MPV 8.9 fL (7.6-11.3); RBC Red Blood Cell Count 3.44 M/uL (4.33-5.43)
[2022-06-08 06:27] LABS: Potassium 3.6 mmol/L (3.5-5.1)
[2022-06-08 07:04] LABS: Magnesium 1.9 mg/dL (1.8-2.4); Phosphorus 2.7 mg/dL (2.5-4.9)
[2022-06-08] MEDS ORDERED: KCL 20 MEQ/100 mL IVPB 20 MEQ/100 ML BAG IV SCH ×2 (09:00→15:00)
[2022-06-08] MEDS: PIPER TAZO 3.375 GM in NA CHLORIDE 0.9% 100 ML IV SCH ×2 (09:16→21:04)
[2022-06-08] MEDS: VITAMIN D 1000 UNIT TAB PO SCH (09:20)
[2022-06-08] MEDS ORDERED: NA CHLORIDE 0.9% 100 ML IV ONE ×2 (09:29→15:20)
[2022-06-08] MEDS: MEDIHONEY 44 ML TOPICAL TUBE TOP SCH (09:37)
--- NOTE | 2022-06-08 16:07 | PN ---
Date of Progress Note: 06/08/2022 Subjective: The patient still nonverbal, weak. Physical Examination: Vital Signs: Blood pressure of 153/70, pulse of 89, afebrile. The patient had good urine output of 950. Chest: Crackles on the left base. Heart: S1, S2. Systolic murmur. Abdomen: Soft, nontender. Extremity: No edema. Neuro: The patient is nonverbal. Laboratory Data: Sodium 141, potassium 3.6, bicarb 24, BUN 24, creatinine 1.5, calcium 8.8, phosphorus 2.7, magnesium 1.9. WBC 10.6, H and H 11/32.7. Current Medications: The patient on include; 1. Levaquin. 2. Zosyn. 3. Flomax. 4. Zofran. Assessment And Plan: 1. Acute kidney injury secondary to prerenal, recovered, back close to baseline. We will continue to monitor the patient. Continue gentle hydration. 2. Hypertension, controlled, optimal. We will continue to monitor. 3. Hypokalemia. We will supplement. 4. Urinary tract infection secondary to Klebsiella pneumonia. Continue Levaquin, dose appropriate. Time spent examining the patient, [id number], reviewing data and radiology, placing ordered, discussing the case with the hospitalist a, discussing the case with nursing more than 35 minutes. MASOUD Voice ID: [id number] Report ID: [id number] MIMI
[2022-06-08] MEDS: TAMSULOSIN 0.4 MG SR CAP PO SCH (21:04)
[2022-06-09] MEDS: HEPARIN 5000 UNIT/ML 1 ML VIAL SQ SCH ×3 (00:13→17:14)
[2022-06-09 05:57] LABS: Absolute Lymphocytes (CBC) 1.2 K/uL (0.7-4.9); Hematocrit 30.9 % (39.6-49.0); Lymphocytes % 9.3 % (15.3-44.8); MCV 94.6 fL (80-100); MPV 8.6 fL (7.6-11.3); RBC Red Blood Cell Count 3.26 M/uL (4.33-5.43)
[2022-06-09 06:19] LABS: Potassium 3.6 mmol/L (3.5-5.1)
--- NOTE | 2022-06-09 06:33 | P.PN ---
Date of Service: 06/09/22 Subjective: less interactive this morning, slower to answer, broken speech low grade temp ROS: 10 point ROS unable to be accurately obtained secondary to dementia, difficult to understand Physical Exam: Gen: AOx1, fatigued appearing HEENT: normal conjunctiva, sclera anicteric CV: regular rate & rhythm, no edema Pulm: non-labored respirations on 3L NC Abd: soft, non-tender, non-distended Skin: b/l knees with abrasions, dressings in place Neuro: +dementia, fatigued, moves extremities vitals reviewed Problem List fall, weakness acute metabolic encephalopathy urinary retention BPH NATHALIE h/o dementia unclear etiology of encephalopathy UA negative blood cultures without growth possibly due to nathalie / urinary retention NATHALIE 2/2 prerenal / urinary retention unclear etiology of urinary retention; home med list: finasteride, suspect BPH, continue flomax continue murry will need f/u with urology renal function improving nephrology following was on empiric zosyn and levaquin low grade temp 06/09, more fatigued concern for infection dc'd zosyn knee abrasion culture growing pseudomonas ID consulted continue levaquin repeat UA acute hypoxemic respiratory failure last CXR on 06/05 - mild worsening bibasilar opacities; stable CXR on 06/09 on [address] NC initial CT negative POA requested SNF with likely transition to long-term care PT consulted SW/CM consulted VTE: heparin sq Code: full Dispo: SNF, ~2 days Time Spent Managing Pts Care (In Minutes): 35
[2022-06-09] MEDS: POTASSIUM CL SA 10 MEQ TAB PO ONE ×2 (08:25→08:40)
[2022-06-09] MEDS: MEDIHONEY 44 ML TOPICAL TUBE TOP SCH (08:25)
[2022-06-09] MEDS: VITAMIN D 1000 UNIT TAB PO SCH (08:25)
[2022-06-09] MEDS ORDERED: POTASSIUM 25 MEQ EFFERV TAB PO ONE (08:40)
--- NOTE | 2022-06-09 08:45 | RAD REPORT ---
EXAM DESCRIPTION: RAD - Chest Single View - 06/09/2022 5:16 am CLINICAL HISTORY: hypoxia, f/u opacities Chest pain. COMPARISON: Chest Single View dated 06/05/2022; Chest Single View dated 06/04/2022; Chest Single View dated 06/03/2022; Chest Single View dated 09/10/2021 FINDINGS: Portable technique limits examination quality. There has been little overall change in bilateral pulmonary opacities since 06/05/2022 study. The hea rt is mildly prominent in size. No displaced fractures. IMPRESSION: Stable chest since 06/05/2022 examination.
[2022-06-09] MEDS ORDERED: SILVER SULFADIAZINE 1% 25 GM TOP ONE (10:30)
[2022-06-09] MEDS ORDERED: Levofloxacin 750mg IV 750 MG/150 ML BAG IV SCH (11:00)
[2022-06-09] MEDS ORDERED: MAGNESIUM SULFATE 1 gm IVPB 1 GM/100 ML BAG IV ONE (11:04)
--- NOTE | 2022-06-09 12:04 | CON ---
History Of Present Illness: I was consulted for gram-negative Pseudomonas growing from hi s wound cultures after he had a fall prior to coming to the hospital and has abrasion and scrapes on his both knees. Also has a wound to his abdominal area, most likely from the tape. The patient open s eyes spontaneously, but not able to give much history. Most of the history was obtained through tx dical records and staff at the bedside. The patient is a [place] resident, who has advanced dem entia hypertension, benign prostatic hypertrophy, Parkinson disease, coming in because of fall and in creased confusion of [address] head showed no evidence of fracture or acute injuries. UA is negative for urinary tract infection. Past Medical History: As per HPI. Social History: Nonsmoker, nondrinker. long-term resident. Medications: Levaquin. See MAR for other medications. Allergies: NO KNOWN DRUG ALLERGIES. Review of Systems: Unable to obtain. Physical Examination: General: This is an 81-year-old male, lying in bed, not in any acute cardiopulmonary distress. Curr ently on 3 L nasal cannula oxygen sats are 93%. HEENT: Unremarkable. Neck: Supple. Lungs: Basal crackles. Heart: S1, S2. Regular. Abdomen: Soft, nontender. Bowel sounds present. Extremity: No edema. Good muscle tone. Laboratory Data: Shows WBC 13.2 from 10.6, hemoglobin 10.4, platelets are 193. Chemistry shows sodi um 140, potassium 3.6, chloride 104, bicarb 25, BUN 23, creatinine 1.5, glucose is 94, albumin level is 3.7. Chest x-ray shows bilateral pulmonary infiltrates, possible aspiration versus CHF. Urinalys is done at the time of admission shows less than 5 WBC and more than 50 RBCs. Assessment And Plan: 1.Bilateral knee abrasions. We will recommend to start the patient on Silvadene and foam dressing. Consider getting tetanus shot if the patient does not have any proper history of tetanus vaccination . 2.Right abdominal wound. We will recommend to apply Medihoney with alginate Tuesday, Tuesday, ay. 3.Bilateral pulmonary infiltrates, possible aspiration. Currently, the patient on some Levaquin. W e will recommend to decrease dosage to 500 mg as the patient is only 134 pounds daily. Consider anae robic coverage if the patient's white count remains elevated. Repeat urinalysis. We will follow the patient as needed. Thank you, Dr. Al for consult. LAURYN/MICHELLE Voice ID: [id number] Report ID: [id number]
[2022-06-09] MEDS: Levofloxacin500mg IV 500 MG/100 ML BAG IV SCH (12:46)
--- NOTE | 2022-06-09 12:58 | PN ---
Date of Progress Note: 06/09/2022 Subjective: The patient was admitted with acute kidney injury secondary to prerenal and toxic ATN secondary to UTI. The patient was started on hydration, kidney function back to baseline. The patient is still weak, fatigued, but eating better. Physical Examination: Vital Signs: When I saw the patient; blood pressure 152/67, pulse of 72, afebrile. Chest: Clear to auscultation. Heart: S1, S2. Regular. Systolic murmur. Abdomen: Soft, nontender. Extremity: No edema. Dressing on the right knee with ulcer. Serosanguineous discharge. Neurologic: Alert. No focality. Laboratory Data: H and H 10.4/30.9. Sodium 140, potassium 3.6, bicarb 25, BUN 23, creatinine 1.5, calcium 8.8, magnesium 1.9, phosphorus 2.7. Current Medications: The patient on include Levaquin 500, Flomax, Tylenol, KCl, cholecalciferol. Assessment And Plan: 1. Acute kidney injury secondary to prerenal/toxic ATN secondary to urinary tract infection, recovered, back to baseline. 2. Hypertension, recovered, stable. Continue current medication. 3. Urinary tract infection secondary to Pseudomonas. Continue current dose of Levaquin, dose appropriate. 4. Hypokalemia, hypomagnesemia. We will supplement. Time spent examining the patient, [id number], reviewing data and radiology, placing ordered, discussing the case with the hospitalist a, discussing the case with nursing more than 35 minutes. MASOUD Voice ID: [id number] Report ID: [id number] MIMI
[2022-06-09] MEDS: TAMSULOSIN 0.4 MG SR CAP PO SCH (21:07)
[2022-06-09] MEDS: ENSURE ENLIVE 237 ML CAN PO SCH (21:08)
[2022-06-09] MEDS: DONEPEZIL HCL 5 MG TAB PO SCH (21:38)
[2022-06-09 23:45] LABS: Calcium Oxalate Crystals- Ur Few /HPF (None Seen); Specific Gravity 1.022 (1.005-1.030); Urine Bacteria >50 /HPF (<20); Urine Bilirubin NEGATIVE (Negative); Urine Blood 3+ (Negative); Urine Clarity Turbid (Clear); Urine Color Yellow (Yellow); Urine Glucose NEGATIVE (Negative); Urine Granular Casts 0-5 /LPF (None Seen); Urine Mucus 2+ /HPF (None Seen); Urine Protein 1+ (Negative); Urine RBC 21-50 /HPF (None Seen); Urine Urobilinogen Normal (Normal)
[2022-06-10] MEDS: HEPARIN 5000 UNIT/ML 1 ML VIAL SQ SCH ×3 (00:40→17:42)
[2022-06-10 04:15] LABS: Absolute Lymphocytes (CBC) 1.3 K/uL (0.7-4.9); Hematocrit 29.8 % (39.6-49.0); Lymphocytes % 10.5 % (15.3-44.8); MPV 8.6 fL (7.6-11.3)
[2022-06-10 04:19] LABS: Potassium 3.3 mmol/L (3.5-5.1)
[2022-06-10] MEDS ORDERED: POTASSIUM 25 MEQ EFFERV TAB PO ONE (04:37)
--- NOTE | 2022-06-10 06:46 | P.PN ---
Date of Service: 06/10/22 Subjective: More awake/alert, appetite improved Still very fatigued Oxygen requirement increased ROS: 10 point ROS unable to be accurately obtained secondary to dementia, difficult to understand Physical Exam: Gen: AOx1, fatigued appearing HEENT: normal conjunctiva, sclera anicteric CV: regular rate & rhythm, no edema Pulm: mild-labored respirations on 7L NC Abd: soft, non-tender, non-distended Skin: b/l knees with abrasions, dressings in place, no purulent drainage Neuro: +dementia, fatigued, moves extremities vitals reviewed Problem List fall, weakness acute metabolic encephalopathy urinary retention BPH NATHALIE h/o dementia unclear etiology of encephalopathy UA negative on presentation Patient seem to have been improving, now worsening over the last 24 hours, send repeat urine off blood cultures without growth possibly due to nathalie / urinary retention NATHALIE 2/2 prerenal / urinary retention unclear etiology of urinary retention; home med list: finasteride, suspect BPH, continue flomax continue murry will need f/u with urology renal function improving nephrology following was on empiric zosyn and levaquin. dc'd zosyn low grade temp 06/09, more fatigued concern for infection knee abrasion culture growing pseudomonas, ID consulted continue levaquin repeat UA with turbid sample, >50 cells acute hypoxemic respiratory failure last CXR on 06/05 - mild worsening bibasilar opacities; stable CXR on 06/09 on [address]L NC initial CT negative POA requested SNF with likely transition to long-term care PT consulted SW/CM consulted VTE: heparin sq Code: full Dispo: SNF, ~2 days may be more appropriate for placement [facility] Time Spent Managing Pts Care (In Minutes): 35
[2022-06-10] MEDS: MEDIHONEY 44 ML TOPICAL TUBE TOP SCH (09:00)
[2022-06-10] MEDS: VITAMIN D 1000 UNIT TAB PO SCH (09:53)
[2022-06-10] MEDS: ENSURE ENLIVE 237 ML CAN PO SCH ×2 (09:54→21:06)
[2022-06-10] MEDS: Levofloxacin500mg IV 500 MG/100 ML BAG IV SCH (11:59)
--- NOTE | 2022-06-10 12:28 | PN ---
Date of Progress Note: 06/10/2022 Subjective: The patient was admitted to the hospital with acute kidney injury secondary to prerenal with hypokalemia and hypomagnesemia and UTI secondary to Klebsiella. The patient was started on antibiotic. The patient off IV fluid for the last 72 hours. Physical Examination: Vital Signs: Blood pressure 123/68, pulse of 80, afebrile. The patient had a Ambriz, good urine output. Chest: Clear to auscultation. Heart: S1, S2. Regular. Systolic murmur. Abdomen: Soft, nontender. Extremity: No edema. Neuro: Alert. No focality. Laboratory Data: WBC 12.2, H and H 10.2/29.8. Sodium 139, potassium 3.3, bicarb 28, BUN 23, creatinine 1.3, continued to improve. GFR of 52, calcium 8.6. Culture growing Pseudomonas on the wound. Current Medications: The patient on include Levaquin 500 daily, Flomax, Ensure, magnesium supplement, KCl. Assessment And Plan: 1. Acute kidney injury secondary to prerenal, recovered, off IV fluid. We will continue to monitor the patient. 2. Hypertension, controlled, optimal. Continue current treatment. 3. Hypokalemia, hypomagnesemia. We will continue supplement. 4. Urinary tract infection. Continue Levaquin. 5. Wound infection on the knee. Follow up with ID. Continue current antibiotic. Time spent examining the patient, [id number], reviewing data and radiology, placing ordered, discussing the case with the hospitalist a, discussing the case with nursing more than 25 minutes. MASOUD Voice ID: [id number] Report ID: [id number] MIMI
[2022-06-10] MEDS: DONEPEZIL HCL 5 MG TAB PO SCH (21:06)
[2022-06-10] MEDS: TAMSULOSIN 0.4 MG SR CAP PO SCH (21:06)
--- NOTE | 2022-06-10 22:19 | PN ---
Subjective: Patient lying in bed. No new acute event. Chart reviewed. Objective: Vital Signs: Temperature 98, pulse 73, respirations 16, blood pressure 145/60. Lungs: Basal crackles. Heart: S1, S2. Regular. Abdomen: Soft, nontender. Bowel sounds present. Extremities: No edema. Laboratory Data: Shows WBC 12.2 down from 13.2, hemoglobin 10.2, platelets are 213. Chemistry shows sodium 139, potassium 3.3, chloride 105, bicarb 28, BUN 23, creatinine 1.3, glucose is 135. Urinalysis shows WBC 5-10. Micro data shows wound cultures from the knee area as Pseudomonas. Blood culture done today are pending. Assessment And Plan: 1. Bilateral knee abrasion. Wound cultures are growing Pseudomonas. Continue Silvadene to the wound site. 2. Abdominal wound: Apply Medihoney with alginate. Continue current treatment. No other recommendation at this time. We will follow the patient as needed. NF/MODL Voice ID: [id number] Report ID: [id number] [facility]
[2022-06-11] MEDS: HEPARIN 5000 UNIT/ML 1 ML VIAL SQ SCH ×3 (01:28→16:02)
[2022-06-11 04:11] LABS: Hematocrit 31.3 % (39.6-49.0); MCV 94.5 fL (80-100); MPV 8.3 fL (7.6-11.3); RBC Red Blood Cell Count 3.31 M/uL (4.33-5.43)
[2022-06-11 04:32] LABS: Potassium 4.1 mmol/L (3.5-5.1)
--- NOTE | 2022-06-11 06:26 | P.PN ---
Date of Service: 06/11/22 Subjective: feels slightly better more alert, ate food with assistance ROS: 10 point ROS difficult to obtain secondary to weak voice, slight confusion Physical Exam: Gen: AOx2, fatigued, arousable, slow to answer HEENT: normal conjunctiva, sclera anicteric CV: regular rate & rhythm, no edema Pulm: mild-labored respirations on 7L NC Abd: soft, non-tender, non-distended Skin: b/l knees with abrasions, dressings in place, no purulent drainage Neuro: fatigued, arousable, broken speech, slow to respond, confused, moves extremities vitals reviewed Problem List fall, weakness acute metabolic encephalopathy urinary retention BPH NATHALIE h/o dementia moderate protein calorie malnutrition unclear etiology of encephalopathy UA negative on presentation significant bladder distention on admission h/o BPH iimproving slowly blood cultures without growth possibly due to nathalie / urinary retention NATHALIE 2/2 prerenal / urinary retention unclear etiology of urinary retention; home med list: finasteride, suspect BPH, continue flomax POA reports patient does have history of urinary problems continue murry will need f/u with urology renal function improving nephrology following if no further improvement, obtain MRI patient's baseline is mostly independent, as of 1-2 days prior to admission. would walk unassisted, able to make basic meals / feed self, with mild dementia was on empiric zosyn and levaquin. dc'd zosyn, patient with increasing CRP, seemed to have more somnolence 06/09-06/10 repeated cultures, CXR concern for pneumonia UA now with >50 bacteria, restart zosyn 06/11 knee abrasion culture growing pseudomonas, ID consulted repeat UA with turbid sample, >50 cells acute hypoxemic respiratory failure last CXR on 06/05 - mild worsening bibasilar opacities; stable CXR on 06/09 repeat with concern for pneumonia wean O2 as tolerated initial CT negative POA requested SNF with likely transition to long-term care patient has not been participating much, very weak improving, eating more, but needs to be fed still only <20-25% when someone available to feed him will discuss with POA, has been several days, dobhoff vs ppn PT consulted SW/CM consulted VTE: heparin sq Code: full Dispo: SNF, may be more appropriate for placement long-term Time Spent Managing Pts Care (In Minutes): 35
[2022-06-11] MEDS: D5.45NS W/KCL 20MEQ 20 MEQ/1,000 ML BAG IV SCH (06:52)
--- NOTE | 2022-06-11 07:19 | RAD REPORT ---
EXAM DESCRIPTION: RAD - Chest Single View - 06/11/2022 6:37 am CLINICAL HISTORY: hypoxia, eval pneumonia vs edema COMPARISON: Chest Single View dated 06/09/2022; Chest Single View dated 06/05/2022; Chest Single View dated 06/04/2022; Chest Single View dated 06/03/2022 FINDINGS: Lines: None. Lungs: Patchy bilateral airspace disease similar to 06/09/2022. Pleural: No significant pleural effusions or pneumothorax. Cardiac: The heart size is within normal limits. Mediastinum: Within normal limits. Bones: No acute fractures. Other: None IMPRESSION: Patchy bilateral airspace disease is similar to 06/09/2022 and most likely representing pneumonia.
[2022-06-11] MEDS: MEDIHONEY 44 ML TOPICAL TUBE TOP SCH (08:43)
[2022-06-11] MEDS: ENSURE ENLIVE 237 ML CAN PO SCH ×2 (08:43→19:54)
[2022-06-11] MEDS: VITAMIN D 1000 UNIT TAB PO SCH (08:43)
--- NOTE | 2022-06-11 11:55 | P.PN ---
Subjective Date of Service: 06/11/22 Chief Complaint: Fall and altered mental status Subjective: No new changes Physical Examination - Vital Signs Temperature: 98.3 F Blood Pressure: 90/57 Pulse: 94 Respirations: 18 Pulse Ox (%): 97 - Physical Exam General: Other (Appears as his stated age) HEENT: Atraumatic, Normocephalic Neck: Supple, JVD not distended Respiratory: Diminished Cardiovascular: No rubs, No murmurs Gastrointestinal: Soft and benign, No rebound Musculoskeletal: No clubbing Integumentary: No warmth Neurological: Other (Non focal) Urinary: Other (No bladder distention) External genitalia: Deferred Rectal: Deferred Assessment And Plan - Plan 1. Acute kidney injury secondary to prerenal. Improved. [place] po fluid intake. 2. Hypertension. BP borderline low. Monitor. 3. Hypokalemia, hypomagnesemia. We will continue supplement. 4. Urinary tract infection. Abx. 5. Wound infection on the knee. Follow up with ID. Continue current antibiotic.
[2022-06-11] MEDS: Levofloxacin500mg IV 500 MG/100 ML BAG IV SCH (12:21)
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
[2022-06-11] MEDS: TAMSULOSIN 0.4 MG SR CAP PO SCH (19:53)
[2022-06-11] MEDS: DONEPEZIL HCL 5 MG TAB PO SCH (19:53)
[2022-06-12] MEDS: HEPARIN 5000 UNIT/ML 1 ML VIAL SQ SCH ×3 (00:50→16:03)
[2022-06-12] MEDS: PIPER TAZO 3.375 GM in NA CHLORIDE 0.9% 100 ML IV SCH ×3 (00:50→16:02)
[2022-06-12] MEDS: D5.45NS W/KCL 20MEQ 20 MEQ/1,000 ML BAG IV SCH ×2 (00:51→21:22)
[2022-06-12 06:53] LABS: Lymphocytes % 8.4 % (15.3-44.8); MCV 94.7 fL (80-100); MPV 8.8 fL (7.6-11.3); RBC Red Blood Cell Count 3.17 M/uL (4.33-5.43)
[2022-06-12 07:02] LABS: Albumin 2.1 g/dL (3.4-5.0); Bilirubin Total 0.3 mg/dL (0.2-1.0); Magnesium 1.9 mg/dL (1.8-2.4); Phosphorus 2.4 mg/dL (2.5-4.9); Potassium 3.9 mmol/L (3.5-5.1); Protein, Total 6.1 g/dL (6.4-8.2)
[2022-06-12] MEDS: MEDIHONEY 44 ML TOPICAL TUBE TOP SCH (09:00)
[2022-06-12] MEDS: ENSURE ENLIVE 237 ML CAN PO SCH ×2 (09:51→21:22)
[2022-06-12] MEDS: VITAMIN D 1000 UNIT TAB PO SCH (09:55)
[2022-06-12] MEDS: Levofloxacin500mg IV 500 MG/100 ML BAG IV SCH (11:11)
--- NOTE | 2022-06-12 12:05 | RAD REPORT ---
EXAM DESCRIPTION: CT - Thorax Wo Con - 06/12/2022 11:36 am CLINICAL HISTORY: sob/hypoxia COMPARISON: none TECHNIQUE: Computed axial tomography of the chest was obtained. Contrast was not requested. All CT scans are performed using dose optimization technique as appropriate and may include automated exposure control or mA/KV adjustment according to patient size. FINDINGS: The evaluation of mediastinum, jordan and vessels is limited secondary to lack of IV contras t administration. Mild to moderate bilateral lower lobe opacities likely pneumonia Calcified mediastinal and hilar lymph nodes. Minimal pleural effusions. . A pericardial effusion is not present Mild gallbladder distention IMPRESSION: Mild to moderate bilateral lower lobe pneumonia
[2022-06-12 12:36] LABS: Arterial Blood Carboxyhemoglob 1.1 % (0-1.5); Blood Gas Oxyhemoglobin 94.9 % (94-97)
--- NOTE | 2022-06-12 13:24 | P.PN ---
Subjective Date of Service: 06/12/22 Chief Complaint: Fall and altered mental status Subjective: No new changes Physical Examination - Vital Signs Temperature: 98.2 F Blood Pressure: 148/68 Pulse: 84 Respirations: 18 Pulse Ox (%): 98 - Physical Exam General: Other (Appears as his stated age) HEENT: Atraumatic, Normocephalic Neck: Supple, JVD not distended Respiratory: Other (Symmetric chest expansion) Cardiovascular: No rubs, No murmurs Gastrointestinal: Soft and benign, No rebound Musculoskeletal: No clubbing Integumentary: No warmth Neurological: Normal tone Urinary: Other (No bladder distention) External genitalia: Deferred Rectal: Deferred Assessment And Plan - Plan 1. Acute kidney injury secondary to prerenal. SCr improved to 1.2-1.3. [place] po fluid intake. 2. Hypertension. BP borderline low. Monitor. 3. Hypokalemia, hypomagnesemia. We will continue supplement. 4. Urinary tract infection. Abx. 5. Wound infection on the knee. Follow up with ID. Continue current antibiotic.
--- NOTE | 2022-06-12 15:29 | P.PN ---
Date of Service: 06/12/22 Subjective: more awake/alert ate most of meal for dinner last night ate >50% this morning feels he is improving, more motivated ROS: 10 point ROS difficult to obtain secondary to weak voice, slight confusion Physical Exam: Gen: AOx2, fatigued HEENT: normal conjunctiva, sclera anicteric CV: regular rate & rhythm, no edema Pulm: mild-labored respirations on 7L NC Abd: soft, non-tender, non-distended Skin: b/l knees with abrasions, dressings in place, no purulent drainage, no induration Neuro: moves extremities, generalized weakness, slow speech, broken speech vitals reviewed Problem List fall, weakness acute metabolic encephalopathy urinary retention BPH NATHALIE Acute hypoxemic respiratory failure secondary to bilateral pneumonia h/o dementia moderate protein calorie malnutrition unclear etiology of encephalopathy UA negative on presentation significant bladder distention on admission h/o BPH improving slowly blood cultures without growth possibly due to nathalie / urinary retention NATHALIE 2/2 prerenal / urinary retention unclear etiology of urinary retention; home med list: finasteride, suspect BPH, continue flomax POA reports patient does have history of urinary problems continue murry will need f/u with urology renal function improving nephrology following if no further improvement, obtain MRI patient's baseline is mostly independent, as of 1-2 days prior to admission. would walk unassisted, able to make basic meals / feed self, with mild dementia was on empiric zosyn and levaquin. zosyn dc'd - pseudomonas cultured from knee abrasions sensitive to both repeated cultures, CXR concern for pneumonia UA now with >50 bacteria, restart zosyn 06/11 CT Chest (06/12): b/l pneumonia pulm consulted knee abrasion culture growing pseudomonas, ID consulted repeat UA with turbid sample, >50 cells acute hypoxemic respiratory failure secondary to pneumonia last CXR on 06/05 - mild worsening bibasilar opacities; stable CXR on 06/09 repeat with concern for pneumonia wean O2 as tolerated initial CT negative POA requested SNF with likely transition to long-term care patient has not been participating much, very weak eating has improved >50% of meals in last 24hrs patient more alert/awake, motivated PT consulted SW/CM consulted VTE: heparin sq Code: full Dispo: iinitially looking towards SNf, but patient was slow to progress and 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
[2022-06-12] MEDS: DONEPEZIL HCL 5 MG TAB PO SCH (21:21)
[2022-06-12] MEDS: TAMSULOSIN 0.4 MG SR CAP PO SCH (21:21)
[2022-06-13] MEDS: PIPER TAZO 3.375 GM in NA CHLORIDE 0.9% 100 ML IV SCH ×3 (01:24→16:55)
[2022-06-13] MEDS: HEPARIN 5000 UNIT/ML 1 ML VIAL SQ SCH ×3 (01:24→16:56)
--- NOTE | 2022-06-13 06:10 | P.PN ---
Date of Service: 06/13/22 Subjective: no acute events overnight feels a little better seems more motivated / better mood ROS: 10 point ROS as noted above, otherwise negative Physical Exam: Gen: AOx2, fatigued, slow speech HEENT: normal conjunctiva, sclera anicteric CV: regular rate & rhythm, no edema Pulm: mild-labored respirations on 5L NC Abd: soft, non-tender, non-distended Skin: b/l knees with abrasions, dressings in place, no purulent drainage, no induration Neuro: moves extremities, generalized weakness, slow speech, broken speech vitals reviewed Problem List fall, weakness acute metabolic encephalopathy urinary retention BPH NATHALIE Acute hypoxemic respiratory failure secondary to bilateral pneumonia h/o dementia moderate protein calorie malnutrition unclear etiology of encephalopathy UA negative on presentation significant bladder distention on admission h/o BPH improving slowly; blood cultures without growth possibly due to nathalie / urinary retention NATHALIE 2/2 prerenal / urinary retention unclear etiology of urinary retention; home med list: finasteride, suspect BPH, continue flomax POA reports patient does have history of urinary problems continue murry will need f/u with urology renal function improving nephrology following if no further improvement, obtain MRI patient's baseline is mostly independent, as of 1-2 days prior to admission. would walk unassisted, able to make basic meals / feed self, with mild dementia acute hypoxemic respiratory failure secondary to pneumonia last CXR on 06/05 - mild worsening bibasilar opacities; stable CXR on 06/09 repeat with concern for pneumonia wean O2 as tolerated initial CT negative was on empiric zosyn and levaquin. zosyn dc'd - pseudomonas cultured from knee abrasions sensitive to both repeated cultures, CXR concern for pneumonia UA now with >50 bacteria, restart zosyn 06/11, dc levaquin CT Chest (06/12): b/l pneumonia pulm consulted knee abrasion culture growing pseudomonas, ID consulted repeat UA with turbid sample, >50 cells POA requested SNF with likely transition to long-term care patient has not been participating much, very weak eating has improved >50% of meals in last 48hrs, up to 100% today patient more alert/awake, motivated PT consulted SW/CM consulted VTE: heparin sq Code: full Dispo: iinitially looking towards SNF, but patient was slow to progress and considering long-term placement patient improving, may be appropriate for SNF, needs physical therapy Time Spent Managing Pts Care (In Minutes): 35
[2022-06-13 07:17] LABS: Absolute Lymphocytes (CBC) 0.9 K/uL (0.7-4.9); Hematocrit 27.8 % (39.6-49.0); Lymphocytes % 7.7 % (15.3-44.8); MCV 94.4 fL (80-100); MPV 7.7 fL (7.6-11.3); RBC Red Blood Cell Count 2.94 M/uL (4.33-5.43)
[2022-06-13 07:59] LABS: Albumin 1.9 g/dL (3.4-5.0); Bilirubin Total 0.4 mg/dL (0.2-1.0); Magnesium 2.2 mg/dL (1.8-2.4); Potassium 3.9 mmol/L (3.5-5.1); Protein, Total 5.7 g/dL (6.4-8.2)
[2022-06-13] MEDS: VITAMIN D 1000 UNIT TAB PO SCH (08:34)
[2022-06-13] MEDS: ENSURE ENLIVE 237 ML CAN PO SCH ×2 (08:47→21:44)
[2022-06-13] MEDS: MEDIHONEY 44 ML TOPICAL TUBE TOP SCH (09:00)
[2022-06-13] MEDS ORDERED: POTASSIUM 25 MEQ EFFERV TAB PO ONE (09:00)
--- NOTE | 2022-06-13 10:24 | P.CNS ---
Date of Consult: 06/12/22 Reason for Consult: Respiratory failure Chief Complaint: Fall and altered mental status History of Present Illness: Patient is 81 years of age with advanced dementia Parkinson's disease brought to this hospital with increasing confusion history of falls was found to be hypoxic he has been here for quite some time/patient is alert responsive/CT scan shows bibasilar infiltrates Patient has mild chronic renal insufficiency Allergies No Known Allergies Allergy (Unverified 06/03/22 18:07) Home Medications: Amlodipine Besylate 10 mg PO DAILY 06/04/22 Donepezil HCl 10 mg PO BEDTIME 06/04/22 Finasteride 5 mg PO DAILY 06/04/22 Oxybutynin Chloride [Ditropan Xl] 5 mg PO DAILY 06/04/22 - Past Medical/Surgical History -: BPH -: Hypertension -: Parkinson's disease -: Dementia - Social History Smoking Status: Unknown if ever smoked Alcohol use: No Place of Residence: Home Review of Systems is unable to be obtained Physical Examination Temp Pulse Resp BP Pulse Ox 97.4 F 77 18 150/70 H 95 06/13/22 08:00 06/13/22 08:00 06/13/22 08:00 06/13/22 08:00 06/13/22 08:00 General: Alert, Oriented x2 Respiratory: Crackles/rales (Matt at the bases) Cardiovascular: No edema, Normal S1 S2 Gastrointestinal: Normal bowel sounds, Soft and benign, Non-distended - Problems (1) Respiratory failure Current Visit: Yes Status: Acute Plan: Patient is now requiring minimal oxygen at about 3 L T scan shows bibasilar infiltrates White count is mildly elevated so far blood cultures are negative patient is on levofloxacin and Zosyn patient's renal function has improved significantly since admission most likely prerenal seen by ID blood pressure is stable some abrasions on the knee DC levofloxacin for now blood gases satisfa ctory Qualifiers: Chronicity: acute
--- NOTE | 2022-06-13 12:40 | P.PN ---
Subjective Date of Service: 06/13/22 Chief Complaint: Fall and altered mental status Subjective: No new changes Physical Examination - Vital Signs Temperature: 97.4 F Blood Pressure: 108/54 Pulse: 83 Respirations: 18 Pulse Ox (%): 94 - Physical Exam General: Other (Chronically ill appearing) HEENT: Atraumatic, Normocephalic Neck: Supple, JVD not distended Respiratory: Other (Symmetric chest expansion) Cardiovascular: No rubs, No murmurs Gastrointestinal: Soft and benign, No rebound Musculoskeletal: No clubbing Integumentary: No warmth Neurological: Normal tone Urinary: Other (No bladder distention) External genitalia: Deferred Rectal: Deferred Assessment And Plan - Plan 1. Acute kidney injury secondary to prerenal. SCr improved to 1.2. [place] po fluid intake. Monitor renal panel 2. Hypertension. BP borderline low. Monitor. 3. Hypokalemia, hypomagnesemia. We will continue supplement. 4. Urinary tract infection. Abx. 5. Wound infection on the knee. Follow up with ID. Continue current antibiotic. 6. Acute respiratory failure, pneumonia. On abx & O2 support.
[2022-06-13] MEDS: D5.45NS W/KCL 20MEQ 20 MEQ/1,000 ML BAG IV SCH (16:55)
[2022-06-13] MEDS: DONEPEZIL HCL 5 MG TAB PO SCH (21:44)
[2022-06-13] MEDS: TAMSULOSIN 0.4 MG SR CAP PO SCH (21:44)
[2022-06-14] MEDS: PIPER TAZO 3.375 GM in NA CHLORIDE 0.9% 100 ML IV SCH ×3 (01:53→16:59)
[2022-06-14] MEDS: HEPARIN 5000 UNIT/ML 1 ML VIAL SQ SCH (01:53)
[2022-06-14 04:27] LABS: Hematocrit 27.9 % (39.6-49.0); Lymphocytes % 7.1 % (15.3-44.8); MCV 94.3 fL (80-100); RBC Red Blood Cell Count 2.96 M/uL (4.33-5.43)
[2022-06-14 04:48] LABS: Bilirubin Total 0.3 mg/dL (0.2-1.0); Magnesium 2.1 mg/dL (1.8-2.4); Phosphorus 2.5 mg/dL (2.5-4.9); Potassium 4.2 mmol/L (3.5-5.1)
[2022-06-14] MEDS ORDERED: ALBUTEROL 2.5 MG/3 ML NEB SOL NEB PRN (07:28)
[2022-06-14] MEDS: MEDIHONEY 44 ML TOPICAL TUBE TOP SCH (09:00)
[2022-06-14] MEDS: ENSURE ENLIVE 237 ML CAN PO SCH ×2 (09:00→22:15)
[2022-06-14] MEDS: VITAMIN D 1000 UNIT TAB PO SCH (09:49)
--- NOTE | 2022-06-14 12:22 | PN ---
Subjective: The patient lying in bed. No new acute event. Opens eyes spontaneously. Denies any ch est pain, abdominal pain, constipation, or diarrhea. As per nurse, the patient is not eating well an d is not able to move around in his bed. Objective: Vital Signs: Temperature 98, pulse 90, respirations 16, blood pressure 153/70. Lungs: Basal crackles. Heart: S1, S2. Regular. Abdomen: Soft, nontender. Bowel sounds present. Extremity: Bilateral knee wounds noted, have improved significantly since last visit. Laboratory Data: WBC 13.5, hemoglobin 9.4, platelets 276. BUN 27, creatinine 1.2. Albumin level is 2. The patient is currently on Zosyn. Has a chest CT done on 06/12, shows the patient has mild-to- moderate bilateral lower lobe pneumonia. Assessment And Plan: Bilateral lower lobe pneumonia. The patient is currently on Zosyn. Consider a dding vancomycin and consider long-term acute care. Bilateral knee wounds, improving. Continue Medi honey with alginate. Leukocytosis, persistent anemia. Continue supportive care. We will follow the patient as needed. NF/MODL Voice ID: [id number] Report ID: [id number]
[2022-06-14] MEDS: DOXYCYCLINE 100 MG in NA CHLORIDE 0.9% 100 ML IVPB SCH ×2 (12:32→22:15)
[2022-06-14] MEDS: D5.45NS W/KCL 20MEQ 20 MEQ/1,000 ML BAG IV SCH (12:32)
--- NOTE | 2022-06-14 21:43 | P.PN ---
Date of Service: 06/14/22 Subjective: no acute events overnight feels a little better eating ROS: 10 point ROS as noted above, otherwise negative Physical Exam: Gen: AOx2, fatigued, slow speech HEENT: normal conjunctiva, sclera anicteric CV: regular rate & rhythm, no edema Pulm: mild-labored respirations on 3L NC Abd: soft, non-tender, non-distended Skin: b/l knees with abrasions, dressings in place, no purulent drainage, no induration Neuro: moves extremities, generalized weakness, slow speech, broken speech, vitals reviewed Problem List fall, weakness acute metabolic encephalopathy urinary retention BPH NATHALIE Acute hypoxemic respiratory failure secondary to bilateral pneumonia h/o dementia moderate protein calorie malnutrition unclear etiology of encephalopathy UA negative on presentation significant bladder distention on admission h/o BPH improving slowly; blood cultures without growth possibly due to nathalie / urinary retention NATHALIE 2/2 prerenal / urinary retention unclear etiology of urinary retention; home med list: finasteride, suspect BPH, continue flomax POA reports patient does have history of urinary problems continue murry will need f/u with urology renal function improving nephrology following if no further improvement, obtain MRI brain patient's baseline is mostly independent, as of 1-2 days prior to admission. would walk unassisted, able to make basic meals / feed self, with mild dementia able to work with PT on 06/13 acute hypoxemic respiratory failure secondary to pneumonia last CXR on 06/05 - mild worsening bibasilar opacities; stable CXR on 06/09 CT 06/12: bibasilar pneumonia pulm consutled was on empiric zosyn and levaquin. zosyn dc'd - pseudomonas cultured from knee abrasions sensitive to both repeated cultures, CXR concern for pneumonia UA now with >50 bacteria, restarted zosyn 06/11, dc levaquin CT Chest (06/12): b/l pneumonia knee abrasion culture growing pseudomonas, ID consulted added doxy, increasing WBC repeat UA with turbid sample, >50 cells POA requested SNF with likely transition to long-term care patient has not been participating much, very weak early in hospitalization now improving, but slowly IV abx, b/l knee wounds, parkinson's and working with PT, weaning O2; seems appropriate for LTAC eating has improved >50% of meals in last 48hrs, up to 100% patient more alert/awake, motivated PT consulted SW/CM consulted VTE: heparin sq Code: full Dispo: SW/CM consulted, LTAC, patient agreeable Time Spent Managing Pts Care (In Minutes): 35
[2022-06-14] MEDS: TAMSULOSIN 0.4 MG SR CAP PO SCH (22:14)
[2022-06-14] MEDS: DONEPEZIL HCL 5 MG TAB PO SCH (22:14)
--- NOTE | 2022-06-14 23:03 | PN ---
Date of Progress Note: 06/14/2022 Chief Complaint: Acute kidney injury. History Of Present Illness: Patient was admitted to the hospital because of fall and altered mental status. He was found to have acute kidney injury. Serum creatinine level overall improved in respon se to IV fluids. Patient has nonoliguric urine output. The patient remains lethargic, cannot provid e review of systems. Physical Examination: General: Patient appeared ill chronically. HEENT: Atraumatic, normocephalic. Lungs: Clear to auscultation bilaterally. Heart: No rubs. No murmurs. Musculoskeletal: No clubbing. Genitourinary: No bladder distention. Impression: 1.Acute kidney injury. Avoid nephrotoxic medication. Continue hydration as tolerated. Monitor tana ctrolytes. 2.Hypertension, borderline on the monitor and hold blood pressure medication. 3.Urinary tract infection, on antibiotics. 4.Wound infection of the knee. Continue antibiotics as recommended by Infectious Disease. 5.Acute respiratory failure, pneumonia. Patient is on O2 support. EB/MODL Voice ID: [id number] Report ID: [id number]
[2022-06-15] MEDS: PIPER TAZO 3.375 GM in NA CHLORIDE 0.9% 100 ML IV SCH ×3 (01:29→16:53)
[2022-06-15] MEDS: HEPARIN 5000 UNIT/ML 1 ML VIAL SQ SCH ×3 (01:30→16:53)
[2022-06-15 03:45] LABS: Hematocrit 25.5 % (39.6-49.0); RBC Red Blood Cell Count 2.71 M/uL (4.33-5.43)
[2022-06-15 03:46] LABS: MPV 7.6 fL (7.6-11.3)
[2022-06-15 03:53] LABS: Magnesium 2.1 mg/dL (1.8-2.4)
[2022-06-15] MEDS: D5.45NS W/KCL 20MEQ 20 MEQ/1,000 ML BAG IV SCH (07:02)
[2022-06-15] MEDS: VITAMIN D 1000 UNIT TAB PO SCH (08:45)
[2022-06-15] MEDS: DOXYCYCLINE 100 MG in NA CHLORIDE 0.9% 100 ML IVPB SCH ×2 (08:45→20:19)
[2022-06-15] MEDS: ENSURE ENLIVE 237 ML CAN PO SCH ×2 (10:25→20:20)
[2022-06-15] MEDS: MEDIHONEY 44 ML TOPICAL TUBE TOP SCH (11:23)
--- NOTE | 2022-06-15 14:06 | P.PN ---
Subjective Date of Service: 06/15/22 Chief Complaint: Fall and altered mental status 81M w/ PMHx of BPH, advanced dementia, Htn, & parkinson's dse, who was BIBA d/t mechanical fall + AMS. He was noted to have leukocytosis & NATHALIE on adm. CT showed distended urinary bladder. Murry inserted. His baseline SCr is 1.6 in August 2021. His serum creatinine was 3.1 on admission Today no overnight events elecatrolytes wnl will dc IVF Physical exam General: Awake, NAD , on high flow NC HEENT: Atraumatic, Normocephalic Neck: Supple, no elevated JVD Respiratory: basal rales Cardiovascular: No rubs, No murmurs Gastrointestinal: Soft and benign, Non-distended, folety catheter Musculoskeletal: No clubbing Integumentary: No warmth Neurological: Normal tone, Sensation intact Lymphatics: No axilla or inguinal lymphadenopathy A/P improving # NATHALIE 2/2 prerenal state + obstructive uropathy +/- ATN from prolonged prerenal resolved Hx of BPH; CT A/P showed distended urinary bladder. 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
--- NOTE | 2022-06-15 16:04 | P.PN ---
Subjective Date of Service: 06/15/22 Chief Complaint: Fall and altered mental status Patient with waxing and waning mental status. He is more awake today. No agitation reported. He is stable on 2 L oxygen by nasal cannula. Physical Examination - Vital Signs Temperature: 98.4 F Blood Pressure: 110/57 Pulse: 91 Respirations: 19 Pulse Ox (%): 92 Assessment And Plan - Current Problems (Diagnosis) (1) Fall Current Visit: Yes Status: Acute (2) Metabolic encephalopathy Current Visit: Yes Status: Acute (3) Urinary retention Current Visit: Yes Status: Acute (4) BPH (benign prostatic hyperplasia) Current Visit: Yes Status: Acute (5) Dementia Current Visit: Yes Status: Acute (6) Acute renal failure Current Visit: Yes Status: Acute - Plan Physical Exam General: Cachectic, confused. Respiratory: Mild bibasilar crackles. Cardiovascular: No edema, Regular rate/rhythm, Normal S1 S2 Gastrointestinal: Normal bowel sounds, Soft and benign, Non-distended, No tenderness Musculoskeletal: No swelling Integumentary: Abrasion-bilateral knee caps Neurological: No focal motor deficit. Plan: Metabolic encephalopathy unclear etiology of encephalopathy UA negative on presentation significant bladder distention on admission h/o BPH blood cultures without growth possibly due to nathalie / urinary retention NATHALIE 2/2 prerenal / urinary retention urinary retention likely secondary to BPH; continue flomax Continue murry will need f/u with urology as outpatient. renal function improved to baseline. nephrology following patient's baseline is mostly independent, as of 1-2 days prior to admission. would walk unassisted, able to make basic meals / feed self. Son reports progressive decline in functional status prior to admission. Continue PT as tolerated. acute hypoxemic respiratory failure secondary to pneumonia last CXR on 06/05 - mild worsening bibasilar opacities; stable CXR on 06/09 CT 06/12: bibasilar pneumonia pulm consutled was on empiric zosyn and levaquin. zosyn dc'd - pseudomonas cultured from knee abrasions sensitive to both UA now with >50 bacteria, restarted zosyn 06/11, off levaquin CT Chest (06/12): b/l pneumonia knee abrasion culture growing pseudomonas, ID consulted who added doxy for increasing WBC POA requested SNF with likely transition to long-term care patient has not been participating much, very weak early in hospitalization He is improving, but slowly IV abx, b/l knee wounds, parkinson's and working with PT, weaning O2; seems appropriate for LTAC >50% of meals in last 48hrs, up to 100% patient more alert/awake. Social service consulted for evaluation for LTAC placement VTE: heparin sq Code: full fashioned garment knitter Spent Managing Pts Care (In Minutes): 28
[2022-06-15] MEDS: TAMSULOSIN 0.4 MG SR CAP PO SCH (20:18)
[2022-06-15] MEDS: DONEPEZIL HCL 5 MG TAB PO SCH (20:18)
[2022-06-16] MEDS: HEPARIN 5000 UNIT/ML 1 ML VIAL SQ SCH ×3 (01:49→16:46)
[2022-06-16] MEDS: PIPER TAZO 3.375 GM in NA CHLORIDE 0.9% 100 ML IV SCH ×3 (01:49→16:45)
[2022-06-16] MEDS: DOXYCYCLINE 100 MG in NA CHLORIDE 0.9% 100 ML IVPB SCH ×2 (08:06→21:38)
--- NOTE | 2022-06-16 09:40 | PN ---
Subjective: The patient lying in bed. No new acute event. Continues to be slightly confused. Objective: Vital Signs: Temperature 98, pulse 83, respirations 19, blood pressure 119/63. Lungs: Basal crackles. Heart: S1, S2 regular. Abdomen: Soft, nontender. Bowel sounds present. Extremities: Wounds noted. Laboratory Data: Shows sodium 136, potassium 4, chloride 101, bicarb 30, BUN 24, creatinine 1.2, glu cose is 111. WBC 9.8, hemoglobin 8.8, platelets are 218. Blood cultures, no growth. Patient margret tlramona on doxycycline and Zosyn. Assessment/plan: Bilateral lower extremity wounds, status post fall. Pneumonia and leukocytosis, im proving. Patient on Zosyn and doxycycline. Consider long-term acute care. We will follow the patie nt as needed. NF/MODL Voice ID: [id number] Report ID: [id number]
[2022-06-16] MEDS: VITAMIN D 1000 UNIT TAB PO SCH (10:35)
[2022-06-16] MEDS: ENSURE ENLIVE 237 ML CAN PO SCH ×2 (10:36→21:00)
--- NOTE | 2022-06-16 11:31 | PN ---
Date of Progress Note: 06/10/2022 Subjective: The patient was admitted with acute kidney injury secondary to prerenal dehydration with hypomagnesemia and hypokalemia. The patient was started on hydration. Kidney function continued to improve. GFR normalized. Physical Examination: Vital Signs: Blood pressure 107/52, pulse of 81, afebrile. Chest: Clear to auscultation. Heart: S1, S2, regular. Abdomen: Soft, nontender. Extremities: No edema. Neurologic: Alert, sleepy. No focality. Laboratory Data: Sodium 136, potassium 4, bicarb 30, BUN 24, creatinine 1.2, GFR of 61. Calcium 8.6 , magnesium 2.1. WBC 9.8, H and H of 8.8/25.5. Current Medications: The patient on include: 1.Flomax. 2.Tylenol. 3.Ensure. 4.Cholecalciferol. Assessment And Plan: 1.Acute kidney injury secondary to prerenal, resolved of IV fluid. We will continue to monitor. 2.Hyponatremia, secondary to depletional, stable, resolved. 3.Hypokalemia, status post supplement, resolved. 4.Hypomagnesemia, status post supplement, resolved. 5.Urinary tract infection secondary to pseudomonas, status post treatment, currently on doxycycline and Zosyn. We will follow up with ID. Dose appropriate. 6.Deconditioning. Continue PT, OT. QUAN/MICHELLE Voice ID: [id number] Report ID: [id number]
[2022-06-16] MEDS: MEDIHONEY 44 ML TOPICAL TUBE TOP SCH (12:28)
[2022-06-16] MEDS ORDERED: ALBUTEROL 2.5 MG/3 ML NEB SOL NEB PRN (14:00)
--- NOTE | 2022-06-16 14:21 | P.PN ---
Subjective Date of Service: 06/16/22 Chief Complaint: Fall and altered mental status Patient has been awake today No agitation reported. He is stable on 2 L oxygen by nasal cannula. He has been tolerating his diet when fed with assistance. Physical Examination - Vital Signs Temperature: 98.2 F Blood Pressure: 107/52 Pulse: 81 Respirations: 16 Pulse Ox (%): 91 Assessment And Plan - Current Problems (Diagnosis) (1) Fall Current Visit: Yes Status: Acute (2) Metabolic encephalopathy Current Visit: Yes Status: Acute (3) Urinary retention Current Visit: Yes Status: Acute (4) BPH (benign prostatic hyperplasia) Current Visit: Yes Status: Acute (5) Dementia Current Visit: Yes Status: Acute (6) Acute renal failure Current Visit: Yes Status: Acute - Plan Physical Exam General: Cachectic, confused. Respiratory: Mild bibasilar crackles. Cardiovascular: No edema, Regular rate/rhythm, Normal S1 S2 Gastrointestinal: Normal bowel sounds, Soft and benign, Non-distended, No tenderness Musculoskeletal: No swelling Integumentary: Abrasion-bilateral knee caps Neurological: No focal motor deficit. Plan: Metabolic encephalopathy unclear etiology of encephalopathy UA negative on presentation significant bladder distention on admission h/o BPH blood cultures without growth possibly due to nathalie / urinary retention NATHALIE 2/2 prerenal / urinary retention urinary retention likely secondary to BPH; continue flomax Continue murry urology follow-up as outpatient. renal function improved to baseline. nephrology following patient's baseline is mostly independent, as of 1-2 days prior to admission. would walk unassisted, able to make basic meals / feed self. Son reports progressive decline in functional status prior to admission. Continue PT as tolerated. acute hypoxemic respiratory failure secondary to pneumonia last CXR on 06/05 - mild worsening bibasilar opacities; stable CXR on 06/09 CT 06/12: bibasilar pneumonia pulm consutled was on empiric zosyn and levaquin. zosyn dc'd - pseudomonas cultured from knee abrasions sensitive to both UA now with >50 bacteria, restarted zosyn 06/11, off levaquin CT Chest (06/12): b/l pneumonia knee abrasion culture growing pseudomonas, ID consulted who added doxy for increasing WBC POA requested SNF with likely transition to long-term care patient has not been participating much, very weak early in hospitalization He is improving, but slowly IV abx, b/l knee wounds, parkinson's and working with PT, weaning O2; seems appropriate for LTAC >50% of meals in last 48hrs, up to 100% patient more alert/awake. 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
[2022-06-16] MEDS: DONEPEZIL HCL 5 MG TAB PO SCH (21:39)
[2022-06-16] MEDS: TAMSULOSIN 0.4 MG SR CAP PO SCH (21:39)
[2022-06-17] MEDS: PIPER TAZO 3.375 GM in NA CHLORIDE 0.9% 100 ML IV SCH ×3 (01:55→17:00)
[2022-06-17] MEDS: HEPARIN 5000 UNIT/ML 1 ML VIAL SQ SCH ×3 (01:55→17:00)
--- NOTE | 2022-06-17 07:52 | PN ---
Subjective: The patient is an 81-year-old male. Patient lying in bed. No new acute events. Somnol ent. Denies any chest pain, abdominal pain, constipation, or diarrhea. Objective: Vital Signs: Temperature 98, pulse 80, respirations 14, blood pressure 125/71. Lungs: Basal crackles. Heart: S1, S2 regular. Abdomen: Soft, nontender. Bowel sounds present. Extremities: No edema. Wounds noted. Laboratory Data: Reviewed. Medications: Patient currently on doxycycline and Zosyn. Assessment And Plan: 1.Bilateral lower extremity wounds with pseudomonas infection. 2.Pneumonia and leukocytosis, improving. Continue Zosyn and doxycycline. 3.Metabolic encephalopathy. 4.Dementia. 5.Anemia of chronic disease. 6.Severe protein-calorie malnourishment, needs nutritional support. We will follow the patient as needed. Consider long-term acute care. NF/MODL Voice ID: [id number] Report ID: [id number]
[2022-06-17] MEDS: VITAMIN D 1000 UNIT TAB PO SCH (08:53)
[2022-06-17] MEDS: DOXYCYCLINE 100 MG in NA CHLORIDE 0.9% 100 ML IVPB SCH (08:54)
[2022-06-17] MEDS: ENSURE ENLIVE 237 ML CAN PO SCH (08:54)
[2022-06-17] MEDS: MEDIHONEY 44 ML TOPICAL TUBE TOP SCH (08:54)
[2022-06-17] MEDS ORDERED: SILVER SULFADIAZINE 1% 25 GM TOP SCH (09:00)
--- NOTE | 2022-06-17 14:23 | P.PN ---
Subjective Date of Service: 06/17/22 Chief Complaint: Fall and altered mental status Patient has been awake and interactive He has been tolerating his diet. Physical Examination - Vital Signs Temperature: 98.1 F Blood Pressure: 109/64 Pulse: 85 Respirations: 16 Pulse Ox (%): 92 Assessment And Plan - Current Problems (Diagnosis) (1) Fall Current Visit: Yes Status: Acute (2) Metabolic encephalopathy Current Visit: Yes Status: Acute (3) Urinary retention Current Visit: Yes Status: Acute (4) BPH (benign prostatic hyperplasia) Current Visit: Yes Status: Acute (5) Dementia Current Visit: Yes Status: Acute (6) Acute renal failure Current Visit: Yes Status: Acute - Plan Physical Exam General: Cachectic, confused. Respiratory: Mild bibasilar crackles. Cardiovascular: No edema, Regular rate/rhythm, Normal S1 S2 Gastrointestinal: Normal bowel sounds, Soft and benign, Non-distended, No tenderness Musculoskeletal: No swelling Integumentary: Abrasion-bilateral knee caps Neurological: No focal motor deficit. Plan: Metabolic encephalopathy UA negative on presentation significant bladder distention on admission h/o BPH blood cultures without growth AMS due to nathalie / urinary retention NATHALIE 2/2 prerenal / urinary retention urinary retention likely secondary to BPH; continue flomax Continue murry urology follow-up as outpatient. NATHALIE resolved nephrology following patient's baseline is mostly independent, as of 1-2 days prior to admission. would walk unassisted, able to make basic meals / feed self. Friend reports progressive decline in functional status prior to admission. Continue PT as tolerated. acute hypoxemic respiratory failure secondary to pneumonia last CXR on 06/05 - mild worsening bibasilar opacities; stable CXR on 06/09 CT 06/12: bibasilar pneumonia Seen by pulmonary was on empiric zosyn and levaquin. zosyn dc'd - pseudomonas cultured from k nee abrasions sensitive to both UA now with >50 bacteria, restarted zosyn 06/11, off levaquin CT Chest (06/12): b/l pneumonia knee abrasion culture growing pseudomonas, ID consulted who added doxy for increasing WBC. Leukocytosis resolved. Continue IV Zosyn and doxycycline POA requested SNF with likely transition to long-term care patient has not been participating much. He is improving, but slowly IV abx, b/l knee wounds, parkinson's and working with PT, weaning O2; seems appropriate for LTAC >50% of meals in last 48hrs, up to 100% patient more alert and interactive. 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
[2022-06-17 15:05] LABS: Hematocrit 27.8 % (39.6-49.0); Lymphocytes % 11.2 % (15.3-44.8); MCV 94.3 fL (80-100); MPV 7.2 fL (7.6-11.3); RBC Red Blood Cell Count 2.95 M/uL (4.33-5.43)
[2022-06-17 15:41] VITALS: O2SAT 94
--- NOTE | 2022-06-17 16:15 | P.DS ---
Admission Date: 06/04/22 Discharge Date: 06/17/22 [facility] Discharge Condition: FAIR Reason for Admission: Fall and altered mental status - Problems (1) Fall Current Visit: Yes Status: Acute (2) Metabolic encephalopathy Current Visit: Yes Status: Acute (3) Urinary retention Current Visit: Yes Status: Acute (4) BPH (benign prostatic hyperplasia) Current Visit: Yes Status: Acute (5) Dementia Current Visit: Yes Status: Acute (6) Acute renal failure Current Visit: Yes Status: Acute Brief History of Present Illness: 81-year-old man with a history of advanced dementia, hypertension, BPH and Parkinson's disease was brought to the emergency department by EMS because he fell. 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 Patient noted to have abrasion to both knees. No family member is available to provide history. Patient has advanced dementia, confused and cannot provide any history. Blood work done in the emergency department demonstrated moderate leukocytosis and elevated creatinine, CT trauma showed no evidence of fracture or visceral injury, no pneumonia. It demonstrated distended urinary bladder. Patient was straight cath in the ED, UA done is negative for UTI. Patient was admitted for further management. Hospital Course: Patient admitted to the medical floor and the following medical problems addres sed during the hospital stay Metabolic encephalopathy UA negative on presentation significant bladder distention on admission h/o BPH blood cultures without growth AMS due to nathalie / urinary retention NATHALIE 2/2 prerenal / urinary retention urinary retention likely secondary to BPH; continue flomax Continue murry urology follow-up for voiding trials. NATHALIE resolved nephrology evaluated and followed patient. patient's baseline is mostly independent, as of 1-2 days prior to admission. would walk unassisted, able to make basic meals / feed self. Friend reports progressive decline in functional status prior to admission. PT as tolerated. Acute hypoxemic respiratory failure secondary to pneumonia CXR on 06/05 - mild worsening bibasilar opacities; stable CXR on 06/09 CT 06/12: bibasilar pneumonia Seen by pulmonary was on empiric zosyn and levaquin. zosyn dc'd - pseudomonas cultured from knee abrasions. UA with >50 bacteria, restarted zosyn 06/11, off levaquin CT Chest (06/12): b/l pneumonia knee abrasion culture grew pseudomonas, ID consulted who added doxy for increasing WBC. Leukocytosis improved. Currently on IV Zosyn and doxycycline POA requested SNF with likely transition to long-term care patient has not been participating much. He is improving, but slowly IV abx, b/l knee wounds, parkinson's and working with PT, weaning O2; patient is appropriate for LTAC He has been approved for LTAC. Vitals are stable for transfer. Vital Signs/Physical Exam: Temp Pulse Resp BP Pulse Ox 98.1 F 85 16 109/64 92 06/17/22 14:23 06/17/22 14:23 06/17/22 14:23 06/17/22 14:23 06/17/22 14:23 General: In no apparent distress, Oriented x1, Other (Awake) HEENT: Mucous membr. moist/pink Neck: JVD not distended Respiratory: Clear to auscultation bilaterally, Crackles/rales (Bibasilar) Cardiovascular: No edema Gastrointestinal: Soft and benign, Non-distended Musculoskeletal: No swelling Integumentary: Other (Bilateral knee abrasions) Neurological: Other (Moves all extremities, rigid knees) Laboratory Data at Discharge: WBC 8.90 K/uL (4.3-10.9) 06/17/22 14:42 Hgb 9.4 g/dL (13.6-17.9) L 06/17/22 14:42 Hct 27.8 % (39.6-49.0) L 06/17/22 14:42 Plt Count 370 K/uL (152-406) 06/17/22 14:42 PT 12.9 SECONDS (9.5-12.5) H 06/03/22 11:04 INR 1.17 06/03/22 11:04 Sodium 138 mmol/L (136-145) 06/17/22 14:42 Potassium 4.0 mmol/L (3.5-5.1) 06/17/22 14:42 BUN 30 mg/dL (7-18) H 06/17/22 14:42 Creatinine 1.58 mg/dL (0.55-1.3) H 06/17/22 14:42 Glucose 127 mg/dL (74-106) H 06/17/22 14:42 Phosphorus 2.5 mg/dL (2.5-4.9) 06/14/22 03:49 Magnesium 2.1 mg/dL (1.8-2.4) 06/15/22 03:28 Total Bilirubin 0.3 mg/dL (0.2-1.0) 06/14/22 03:49 AST 32 U/L (15-37) 06/14/22 03:49 ALT 51 U/L (12-78) 06/14/22 03:49 Alkaline Phosphatase 68 U/L (45-117) 06/14/22 03:49 Home Medications: Donepezil HCl 10 mg PO BEDTIME 06/04/22 Finasteride 5 mg PO DAILY 06/04/22 Acetaminophen [Tylenol*] 650 mg CO Q6HP PRN supp 06/17/22 Albuterol Neb [Proventil 0.083% Neb Soln] 2.5 mg NEB [id number] PRN amp 06/17/22 Cholecalciferol (Vitamin D3) [Vitamin D 1000 Iu Tab*] 2,000 unit PO DAILY tab 06/17/22 Ensure Enlive 237 ml PO BID can 06/17/22 Medihoney [Medihoney Woundcare Gel*] 1 appl TOP DAILY tube 06/17/22 Silver Sulfadiazine [Silvadene 1% Cream] 1 appl TOP DAILY tube 06/17/22 Tamsulosin [Flomax*] 0.4 mg PO BEDTIME cap 06/17/22 Diet: Pureed Activity: Fall precautions Followup: NONE,NONE [Primary Care Provider] - Time spent managing pt's care (in minutes): 36
[2022-06-17 16:23] VITALS: BP 127/64; TEMP 98.3
--- NOTE | 2022-06-17 20:51 | PN ---
Date of Progress Note: 06/17/2022 Chief Complaint: Acute kidney injury secondary to prerenal azotemia with volume depletion complicate d by hypomagnesemia and hypokalemia. Renal function has improved and GFR is within normal limits. Subjective: Patient has improved p.o. intake. He is more alert today. He follows commands. Physical Examination: Lungs: Clear to auscultation bilaterally. Heart: S1, S2. Abdomen: Soft. Extremities: No edema. Impression And Plan: 1.Acute kidney injury secondary to prerenal azotemia, resolved. Patient responded to IV fluids and renal function has improved. Avoid nephrotoxic medication. 2.Hyponatremia secondary to volume depletion. Hyponatremia resolved. Monitor electrolyte status. 3.Hypokalemia. Patient treated with supplement and the potassium level is within normal limits. 4.Urinary tract infection secondary to pseudomonas infection. Patient is currently on doxycycline a nd Zosyn. Continue current treatment. EB/MODL Voice ID: [id number] Report ID: [id number]
== END 2022-06-17 18:01 | DRG 682 ==
LOC: ER 09:45 → ERHOLD 14:21 → 4TH 19:24 → OBSVTOIN 06-04 08:34
PROVIDERS: ADMIT Internal Medicine; ATTEND Internal Medicine
PROC: 5A09457 Assistance with Respiratory Ventilation, 24-96 Consecutive Hours, Continuous Positive Airway Pressure (ICD-10-PCS; principal; 2022-06-04)
DX: N17.0 Acute kidney failure with tubular necrosis (principal); G93.41 Metabolic encephalopathy; J96.01 Acute respiratory failure with hypoxia; J18.9 Pneumonia, unspecified organism; E44.0 Moderate protein-calorie malnutrition; R64 Cachexia; Z68.1 Body mass index [BMI] 19.9 or less, adult; M62.82 Rhabdomyolysis; E87.1 Hypo-osmolality and hyponatremia; N39.0 Urinary tract infection, site not specified; E87.0 Hyperosmolality and hypernatremia; N40.0 Benign prostatic hyperplasia without lower urinary tract symptoms; G20 Parkinson's disease; E86.0 Dehydration; E86.9 Volume depletion, unspecified; E87.6 Hypokalemia; I12.9 Hypertensive chronic kidney disease with stage 1 through stage 4 chronic kidney disease, or unspecified chronic kidney disease; N18.30 Chronic kidney disease, stage 3 unspecified; D63.1 Anemia in chronic kidney disease; D63.8 Anemia in other chronic diseases classified elsewhere; E55.9 Vitamin D deficiency, unspecified; F03.90 Unspecified dementia, unspecified severity, without behavioral disturbance, psychotic disturbance, mood disturbance, and anxiety; S80.212A Abrasion, left knee, initial encounter; S80.211A Abrasion, right knee, initial encounter; F17.220 Nicotine dependence, chewing tobacco, uncomplicated; B96.1 Klebsiella pneumoniae [K. pneumoniae] as the cause of diseases classified elsewhere; B96.5 Pseudomonas (aeruginosa) (mallei) (pseudomallei) as the cause of diseases classified elsewhere; R33.9 Retention of urine, unspecified; R41.0 Disorientation, unspecified; Z79.899 Other long term (current) drug therapy; Z20.822 Contact with and (suspected) exposure to COVID-19; W18.30XA Fall on same level, unspecified, initial encounter; Y92.9 Unspecified place or not applicable
CPT/HCPCS: 36415; 70450; 71045; 71250; 72125; 80048; 80053; 80076; 81001; 81003; 81015; 82306; 82550; 82570; 82805; 83605; 83735; 83880; 83935; 83970; 84100; 84132; 84145; 84156; 84300; 84484; 85025; 85027; 85610; 86140; 87040; 87070; 87077; 87086; 87088; 87186; 87205; 87811; 93005; 94002; 94010; 94640; 94760; 96374; 97110; 97161; 97164; 97530; 99251; 99285; G0378; J0456; J1644; J2543; J3475; J3480; J7050; J7799; P9047